=== PATIENT | female | born 1960 | race Caucasian/White ===

== ENCOUNTER 2022-07-25 17:54 | Outpatient (OUT) | payer OTHER, SELFPAY ==
--- NOTE | 2022-07-25 17:56 | MM_ITS ---
Patient: KALINA CEDEÑO Exam Date: 07/25/2022 : 1960 Gender:F Ordering : DR ARNOLDO GUNDERSON . Admission #: [id number] Family : Order #: [id number] CLICK HERE TO VIEW EXAM RADIOLOGY REPORT PROCEDURE: MM TOMOSYNTHESIS SCREENING BI COMPARISON: MG MAMM SCREEN MAYNOR W CAD, 05/07/2018. INDICATIONS: Screening mammogram Calculator Name NCI Breast Cancer Risk Assessment Tool 5 Year Breast Cancer Risk 1.20% Lifetime Breast Cancer Risk 4.70% Personal Breast Cancer No Personal Ovarian Cancer No Treatments None Family Cancers None LOCATION: [facility] BREAST COMPOSITION: Almost entirely fatty. FINDINGS: DIAGNOSTIC CATEGORY 1--NEGATIVE. RIGHT BREAST: No significant suspicious finding. No significant change has occurred. LEFT BREAST: No significant suspicious finding. No significant change has occurred. RECOMMENDATIONS: ROUTINE MAMMOGRAM AND CLINICAL EVALUATION IN 12 MONTHS. PLEASE NOTE: A NORMAL MAMMOGRAM DOES NOT EXCLUDE THE POSSIBILITY OF BREAST CANCER. A CLINICALLY SUSPICIOUS PALPABLE LUMP SHOULD BE BIOPSIED. Dictated by: Osman Damon M.D. on 07/26/2022 at 11:13 Approved by: Osman Damon M.D. on 07/26/2022 at 11:16
== END 2022-07-25 17:55 ==
LOC: MAMMO 17:54
PROVIDERS: PCP Family Medicine; Visit Provider Family Medicine
DX: Z12.31 Encounter for screening mammogram for malignant neoplasm of breast (principal)
CPT/HCPCS: 77063; 77067

== ENCOUNTER 2023-10-03 16:44 | Outpatient (OUT) | payer OTHER, SELFPAY ==
--- NOTE | 2023-10-03 16:52 | XR_ITS ---
The [address] [address] Patient Name: KALINA CEDEÑO MRN: [id number] date: 1960 Sex: F Assigned Patient Location: [facility] Current Patient Location: Accession/Order Number: [id number] Exam Date: 10/03/2023 16:55 Report Date: 10/05/2023 15:12 At the request of: ARNOLDO GUNDERSON Procedure: XR foot RT 2V EXAM: XR foot RT 2V HISTORY: Right foot pain M79.671 COMPARISON: None. TECHNIQUE: 3 views of the right foot. FINDINGS: Bones: There is a transverse, extra-articular nondisplaced fracture of fifth proximal phalangeal base/ shaft. No aggressive appearing bony lesion. Joints: Normal alignment. There is mild hallux valgus. There is a small heel spur. Soft tissues: Unremarkable. XR/XR foot RT 2V IMPRESSION: a transverse, extra-articular nondisplaced fracture of fifth proximal phalangeal base/ shaft. Electronically authenticated by: KARIN NELSON Date: 10/05/2023 15:12
== END 2023-10-03 16:45 | disposition home or self-care (01) ==
LOC: RAD 16:46
PROVIDERS: PCP Family Medicine; Visit Provider Family Medicine
DX: M79.671 Pain in right foot (principal); S92.514A Nondisplaced fracture of proximal phalanx of right lesser toe(s), initial encounter for closed fracture
CPT/HCPCS: 73620

== ENCOUNTER 2024-11-07 08:37 | Outpatient (OUT) | payer OTHER, SELFPAY ==
--- OUTSIDE RECORDS SUMMARY | 2024-11-07 08:40 | XMS_ITS | CCD ---
Author Organization [facility] Care Team Providers Care Disbursing Officer Name Role Phone NEPTALI ., DR MCLAUGHLIN Primary Care Unavailable HOY ., DR MCLAUGHLIN Admitting Unavailable HOY ., DR MCLAUGHLIN Attending Unavailable HOY ., DR MCLAUGHLIN Consulting Unavailable HOY ., DR MCLAUGHLIN Admitting Unavailable HOY ., DR MCLAUGHLIN Attending Unavailable HOY ., DR MCLAUGHLIN Consulting Unavailable HOY ., DR MCLAUGHLIN Primary Care Unavailable Problems Active Problems Problem Classification Problem Date Documented Da te Episodic/Chronic Unclassified (2 sources) CONTACT W/AND (SUSP) EXPOS COVID-19; Translations: [CONTACT W/AND (SUSP) EXPOS COVID-19] Onset: 06-22-2022 Viral infection (1 source) COVID-19; Translations: [COVID-19] Onset: 06-22-2022 Past or Other Problems Problem Classification Problem Date Documented Da te Episodic/Chronic Unclassified (1 source) CONTACT W/AND (SUSP) EXPOS COVID-19; Translations: [CONTACT W/AND (SUSP) EXPOS COVID-19] Onset: 06-19-2022 Results Test Name Value Interpretation Reference Range Facil ity INSULINon 07-18-2022 Insulin 16.2 uIU/mL Normal 2.6-24.9 [facility] Comment on above: Performed By: #### I NSULIN #### [facility] [address] [address] [address] Suri Pack CBC AUTO DIFFon 07-15-2022 BASO # 0.0 103/ul Normal 0.0-0.1 [facility] Comment on above: Performed By: #### C BC #### [facility] [address] [address] [address] Suri Pack Basophils/100 WBC (Bld) 0.6 % Normal 0.2-2.0 [facility] Comment on above: Performed By: #### C BC #### [facility] [address] [place] [address] Dr. Suri Pack EO # 0.2 103/ul Normal 0.0-0.7 [facility] Comment on above: Performed By: #### C BC #### [facility] [address] [place] [address] Dr. Suri Pack Eosinophils/100 WBC (Bld) 3.5 % Normal 0.9-7.0 [facility] Comment on above: Performed By: #### C BC #### [facility] [address] [place] [address] Dr. Suri Pack Erythrocyte distribution width (RBC) [Ratio] 17.2 % Critically high 11.0-15.0 [facility] Comment on above: Performed By: #### C BC #### [facility] [address] [place] [address] Dr. Suri Pack Hematocrit (Bld) [Volume fraction] 37.0 % Normal 36.0-48.0 [facility] Comment on above: Performed By: #### C BC #### [facility] [address] [place] [address] Dr. Suri Pack Hemoglobin (Bld) [Mass/Vol] 11.2 g/dL Critically low 12.0-16.0 [facility] Comment on above: Performed By: #### C BC #### [facility] [address] [place] [address] Dr. Suri Pack IG # 0.02 10e3/ul Normal 0.00-0.03 [facility] Comment on above: Performed By: #### C BC #### [facility] [address] [place] [address] Dr. Suri Pack IG % 0.4 % Normal 0.0-0.5 [facility] Comment on above: Performed By: #### C BC #### [facility] [address] [place] [address] Dr. Suri Pack LYMPH # 1.5 103/ul Normal 1.2-3.8 [facility] Comment on above: Performed By: #### C BC #### [facility] [address] [place] [address] Dr. Suri Pack Lymphocytes/100 WBC (Bld) 31.4 % Normal 20.5-60.0 [facility] Comment on above: Performed By: #### C BC #### [facility] [address] [address] [address] Suri Pack MANUAL DIFF REQ NO Normal [facility] Comment on above: Performed By: #### C BC #### [facility] [address] [place] [address] Dr. Srui Pack MCH (RBC) [Entitic mass] 25.7 pg Critically low 26.7-34.0 [facility] Comment on above: Performed By: #### C BC #### [facility] [address] [place] [address] Dr. Suri Pack MCHC (RBC) [Mass/Vol] 30.3 g/dL Normal 29.9-35.2 [facility] Comment on above: Performed By: #### C BC #### [facility] [address] [place] [address] Dr. Suri Pack MCV (RBC) [Entitic vol] 85.1 fL Normal 81.0-99.0 [facility] Comment on above: Performed By: #### C BC #### [facility] [address] [place] [address] Dr. Suri Pack MONO # 0.4 103/ul Normal 0.3-0.8 [facility] Comment on above: Performed By: #### C BC #### [facility] [address] [place] [address] Dr. Suri Pack Monocytes/100 WBC (Bld) 9.3 % Normal 1.7-12.0 [facility] Comment on above: Performed By: #### C BC #### [facility] [address] [place] [address] Dr. Suri Pack NEUT # 2.5 103/ul Normal 1.4-6.5 [facility] Comment on above: Performed By: #### C BC #### [facility] [address] [place] [address] Dr. Suri Pack Neutrophils/100 WBC (Bld) 54.8 % Normal 43.0-75.0 [facility] Comment on above: Performed By: #### C BC #### [facility] [address] [place] [address] Dr. Suri Pack Platelet mean volume (Bld) [Entitic vol] 10.5 fL Normal 9.5-13.5 [facility] Comment on above: Performed By: #### C BC #### [facility] [address] [place] [address] Dr. Suri Pack PLT 243 103/ul Normal 150-450 [facility] Comment on above: Performed By: #### C BC #### [facility] [address] [place] [address] Dr. Suri Pack RBC 4.35 106/ul Normal 4.20-5.40 [facility] Comment on above: Performed By: #### C BC #### [facility] [address] [place] [address] Dr. Suri Pack WBC 4.6 103/ul Normal 4.0-11.0 [facility] Comment on above: Performed By: #### C BC #### [facility] [address] [place] [address] Dr. Suri Pack FREE THYROXINE INDEX T7on FTI 2.40 Normal 1.30-4.50 [facility] Comment on above: Performed By: #### C MP, T7, LIPID, TSH #### [facility] [address] [place] [address] Dr. Suri Pack T3U 32.0 % Normal 30.0-39.0 [facility] Comment on above: Performed By: #### C MP, T7, LIPID, TSH #### [facility] [address] [place] [address] Dr. Suri Pack T4 [Mass/Vol] 7.50 ug/dL Normal 4.80-13.90 [facility] Comment on above: Performed By: #### C MP, T7, LIPID, TSH #### [facility] [address] [address] [address] Suri Pack GLYCOHEMOGLOBIN A1Con 2022 ADA RECOMMENDATION SEE BELOW Normal [facility] Comment on above: Result Comment: ADA RECOMMENDED LIMIT 4.0 - 6.0 ADA THERAPEUTIC TARGET < 7.0 ACTION SUGGESTED > 7.0 Performed By: #### A 1C #### [facility] [address] [place] [address] Dr. Suri Pack Glucose [Mass/Vol] 103 mg/dL Normal [facility] Comment on above: Performed By: #### A 1C #### [facility] [address] [place] [address] Dr. Suri Pack HbA1c (Bld) [Mass fraction] 5.2 % Normal 4.5-6.2 [facility] Comment on above: Performed By: #### A 1C #### [facility] [address] [place] [address] Dr. Suri Pack IRONon 07-15-2022 Iron [Mass/Vol] 39.0 ug/dL Critically low 50.0-170.0 [facility] Comment on above: Performed By: #### I HERNAN TREVINO #### [facility] [address] [place] [address] Dr. Suri Pack LIPID PROFILEon 07-15-2022 CHOL-HDL RATIO NORM SEE BELOW Normal [facility] Comment on above: Result Comment: 3.3 - 4.4 LOW RISK 4.4 - 7.1 AVERAGE RISK 7.1 - 11.0 MODERATE RISK >11.0 HIGH RISK Performed By: #### C MP, T7, LIPID, TSH #### [facility] [address] [place] [address] Dr. Suri Pack Cholesterol [Mass/Vol] 185 mg/dL Normal <=200 [facility] Comment on above: Performed By: #### C MP, T7, LIPID, TSH #### [facility] [address] [place] [address] Dr. Suri Pack Cholesterol in HDL [Mass/Vol] 85 mg/dL Critically high 40-60 [facility] Comment on above: Performed By: #### C MP, T7, LIPID, TSH #### [facility] [address] [address] [address] Suri Pack Cholesterol in LDL [Mass/Vol] 88.4 mg/dL Normal [facility] Comment on above: Performed By: #### C MP, T7, LIPID, TSH #### [facility] [address] [address] [address] Suri Pcak Cholesterol.total/Cho lesterol in HDL [Mass ratio] 2.2 {ratio} Normal [facility] Comment on above: Performed By: #### C MP, T7, LIPID, TSH #### [facility] [address] [address] [address] Suri Pack HDL NORMAL > or = 60 mg/dl - LOW CARDIOVASCULAR RISK <40 mg/dl - HIGH CARDIOVASCULAR RISK Normal [facility] Comment on above: Performed By: #### C MP, T7, LIPID, TSH #### [facility] [address] [address] [address] Suri Pack LDL CALC NORMAL SEE BELOW Normal [facility] Comment on above: Result Comment: <100 mg/dl OPTIMAL 100 - 129 mg/dl NEAR OR ABOVE OPTIMAL 130 - 159 mg/dl BORDERLINE HIGH 160 - 189 mg/dl HIGH >190 mg/dl VERY HIGH Performed By: #### C MP, T7, LIPID, TSH #### [facility] [address] [address] [address] Suri Pack Triglyceride [Mass/Vol] 58 mg/dL Normal <=150 [facility] Comment on above: Performed By: #### C MP, T7, LIPID, TSH #### [facility] [address] [address] [address] Suri Pack VLDL CALC 11.6 mg/dL Normal [facility] Comment on above: Performed By: #### C MP, T7, LIPID, TSH #### [facility] [address] [place] [address] Dr. Suri Pack PROF 14(COMP METB)on 023 Albumin [Mass/Vol] 3.4 g/dL Normal 3.4-5.0 [facility] Comment on above: Performed By: #### C MP, T7, LIPID, TSH #### [facility] [address] [address] [address] Suri Pack Albumin/Globulin [Mass ratio] 0.9 {ratio} Normal [facility] Comment on above: Performed By: #### C MP, T7, LIPID, TSH #### [facility] [address] [address] [address] Suri Pack ALP [Catalytic activity/Vol] 98 U/L Normal 46-116 [facility] Comment on above: Performed By: #### C MP, T7, LIPID, TSH #### [facility] [address] [address] [address] Suri Pack ALT [Catalytic activity/Vol] 20 U/L Normal 14-59 [facility] Comment on above: Performed By: #### C MP, T7, LIPID, TSH #### [facility] [address] [place] [address] Dr. Suri Pack Anion gap [Moles/Vol] 16.5 mmol/L Normal [facility] Comment on above: Performed By: #### C MP, T7, LIPID, TSH #### [facility] [address] [place] [address] Dr. Suri Pack AST [Catalytic activity/Vol] 16 U/L Normal 15-37 [facility] Comment on above: Performed By: #### C MP, T7, LIPID, TSH #### [facility] [address] [address] [address] Suri Pack Bilirubin [Mass/Vol] 0.5 mg/dL Normal 0.2-1.0 [facility] Comment on above: Performed By: #### C MP, T7, LIPID, TSH #### [facility] [address] [place] [address] Dr. Suri Pack Calcium [Mass/Vol] 9.0 mg/dL Normal 8.5-10.1 [facility] Comment on above: Performed By: #### C MP, T7, LIPID, TSH #### [facility] [address] [place] [address] Dr. Suri Pack Chloride [Moles/Vol] 104 mmol/L Normal 98-107 [facility] Comment on above: Performed By: #### C MP, T7, LIPID, TSH #### [facility] [address] [address] [address] Suri Pack CO2 [Moles/Vol] 25.6 mmol/L Normal 21.0-32.0 [facility] Comment on above: Performed By: #### C MP, T7, LIPID, TSH #### [facility] [address] [address] [address] Suri Pack Creatinine [Mass/Vol] 0.78 mg/dL Normal 0.55-1.02 [facility] Comment on above: Performed By: #### C MP, T7, LIPID, TSH #### [facility] [address] [place] [address] Dr. Suri Pack EGFR-AF BOLIVIAN >60 Normal >=60 [facility] Comment on above: Performed By: #### C MP, T7, LIPID, TSH #### [facility] [address] [place] [address] Dr. Suri Pack EGFR-NON AF BOLIVIAN >60 Normal >=60 [facility] Comment on above: Performed By: #### C MP, T7, LIPID, TSH #### [facility] [address] [place] [address] Dr. Suri Pack Globulin (S) [Mass/Vol] 3.9 g/dL Normal [facility] Comment on above: Performed By: #### C MP, T7, LIPID, TSH #### [facility] [address] [address] [address] Suri Pack Glucose [Mass/Vol] 87 mg/dL Normal 74-106 [facility] Comment on above: Performed By: #### C MP, T7, LIPID, TSH #### [facility] [address] [address] [address] Suri Pack Potassium [Moles/Vol] 4.1 mmol/L Normal 3.5-5.1 [facility] Comment on above: Performed By: #### C MP, T7, LIPID, TSH #### [facility] [address] [place] [address] Dr. Suri Pack Protein [Mass/Vol] 7.3 g/dL Normal 6.4-8.2 [facility] Comment on above: Performed By: #### C MP, T7, LIPID, TSH #### [facility] [address] [place] [address] Dr. Suri Pack Sodium [Moles/Vol] 142 mmol/L Normal 136-145 [facility] Comment on above: Performed By: #### C MP, T7, LIPID, TSH #### [facility] [address] [place] [address] Dr. Suri Pack Urea nitrogen [Mass/Vol] 6.0 mg/dL Critically low 7.0-18.0 [facility] Comment on above: Performed By: #### C MP, T7, LIPID, TSH #### [facility] [address] [place] [address] Dr. Suri Pack Urea nitrogen/Creatinine [Mass ratio] 7.7 mg/mg Normal [facility] Comment on above: Performed By: #### C MP, T7, LIPID, TSH #### [facility] [address] [place] [address] Dr. Suri Pack TSHon 07-15-2022 TSH 3.436 uIU/mL Normal 0.358-3.740 [facility] Comment on above: Performed By: #### C MP, T7, LIPID, TSH #### [facility] [address] [place] [address] Dr. Suri Pack VITAMIN D 25 OHon 07-15-2022 VIT D 25-OH 17.1 ng/mL Normal [facility] Comment on above: Performed By: #### I URIEL VITAD #### [facility] [address] [place] [address] Dr. Suri Pack VIT D RANGES SEE BELOW Normal [facility] Comment on above: Result Comment: <20 ng/mL Vit D deficient 20 - <30 ng/mL Vit D insufficient 30 - 100 ng/mL Vit D sufficient >100 ng/mL Potential Toxicity Performed By: #### I URIEL, VITAD #### [facility] [address] [address] [address] Suri Pack SYMPTOMATIC COVID-19 ANTIGEN on 06-19-2022 EUA Statement SEE BELOW Normal [facility] Comment on above: Result Comment: This test has not been FDA cleared or approved, but has been authorized by the FDA under an Emergency Use Authorization (EUA) for use by authorized laboratories certified under CLIA that meet the requirements to perform moderate or high complexity testing. This test has been authorized only for the detection of proteins from SARS-CoV-2, not for any other viruses or pathogens. The emergency use of this test is authorized for the duration of the declaration that circumstances exist justifying the authorization of emergency use of in vitro diagnostic tests for detection and/or diagnosis of Covid-19 under section 564(b)(1) of the Act, 21 U.S.C. 360bbb-3(b)(1), unless the declaration is terminated or authorization is revoked sooner. Performed By: #### C VDAGS #### [facility] [address] [place] [address] Dr. Suri Pack SARS-CoV-2 (COVID-19) RNA LEONEL+probe Ql (Unsp spec) Positive Abnormal NEGATIVE [facility] Comment on above: Performed By: #### C VDAGS #### [facility] [address] [place] [address] Dr. Suri Pack Encounters Encounter Date Encounter Type Care Provider Facility Start: 07-17-2022 Encounter for genera l adult medical examination without abnormal findings DR ARNOLDO GUNDERSON . [facility] Start: 07-15-2022 End: 07-16-[address] ARNOLDO GUNDERSON . Facility:[facility] Start: 07-15-2022 End: 07-16-2022 Encounter for general adult medical examination without abnormal findings DR ARNOLDO GUNDERSON . Facility:[facility] Start: 06-19-2022 End: 06-19-[address] ARNOLDO GUNDERSON . Facility: Payers Date Payer Category Payer Unknown [id number] 1960 Unknown [id number] 1960 Unknown [id number] Summary Purpose Family History No Family History Records Found Advance Directives No Advanced Directives Records Found Additional Source Comments INFORMATION SOURCE (unrecogn ized section and content) DATE CREATED AUTHOR 07/28/2022 [facility] FOR RECORDS PERTAINING TO PATIENTS WHO ARE OR HAVE BEEN ENROLLED IN A CHEMICAL DEPENDENCY/SUBSTANCEABUSE PROGRAM, SOME INFORMATION MAY BE OMITTED. This clinical summary was aggregated from multiple sources. Caution should be exercised in using it in the provision of clinical care. This summary normalizes information from multiple sources, and as a consequence, information in this document may materially change the coding, format and clinical context of patient data. In addition, data may be omitted in some cases. CLINICAL DECISIONS SHOULD BE BASED ON THE PRIMARY CLINICAL RECORDS. [facility]. provides no warranty or guarantee of the accuracy or completeness of information in this document.
--- NOTE | 2024-11-07 08:59 | MM_ITS ---
Patient Name: KALINA CEDEÑO MR#: [id number] : 1960 Exam Date: 11/07/2024 Ordering Doctor: DR ARNOLDO GUNDERSON . RADIOLOGY REPORT PROCEDURE: MM TOMOSYNTHESIS SCREENING BI COMPARISON: MM TOMOSYNTHESIS SCREENING BI, 07/25/2022. MG MAMM SCREEN MAYNOR W CAD, 05/07/2018. MG MAMM RT DIAG FU, 05/04/2017. MG MAMM SCREEN MAYNOR W CAD, 05/01/2017. INDICATIONS: Screening Calculator Name NCI Breast Cancer Risk Assessment Tool 5 Year Breast Cancer Risk 1.20% Lifetime Breast Cancer Risk 4.40% Personal Breast Cancer No Personal Ovarian Cancer No Treatments None Family Cancers Father with lung cancer at age ~65. LOCATION: [facility] BREAST COMPOSITION: The breasts are almost entirely fatty. FINDINGS: RIGHT BREAST: No significant suspicious finding. LEFT BREAST: No significant suspicious finding. DIAGNOSTIC CATEGORY 1--NEGATIVE. RECOMMENDATIONS: ROUTINE MAMMOGRAM AND CLINICAL EVALUATION IN 12 MONTHS. Dictated by: Sanjay Palmer DO on 11/07/2024 at 12:50 Approved by: Sanjay Palmer DO on 11/07/2024 at 12:51
== END 2024-11-07 08:38 | disposition home or self-care (01) ==
LOC: MAMMO 08:37
PROVIDERS: PCP Family Medicine; Visit Provider Family Medicine
DX: Z12.31 Encounter for screening mammogram for malignant neoplasm of breast (principal); Z80.1 Family history of malignant neoplasm of trachea, bronchus and lung
CPT/HCPCS: 77063; 77067

== ENCOUNTER 2024-12-08 13:15 | Outpatient (REF) | payer OTHER, SELFPAY ==
--- OUTSIDE RECORDS SUMMARY | 2024-11-27 08:30 | XMS_ITS | Encounter Summary ---
Author Organization [facility] Address [address], [address] [place] [address] Care Team Providers Care Gem Carver Name Role Phone Sukumar Bolton MD Primary Care Provider + Reason for Visit * Reason Comments Post-Op Check ORIF right proximal humerus Encounter Details Date Type Department Care Team (Late st Contact Info) Description 11/27/2024 8:30 AM EDT Office Visit [facility] [address] [place] [id number] Jan Hanley DO [address] [place] [address] Humeral head fracture, right, closed, initial encounter (Primary Dx) Social History Tobacco Use Types Packs/Day Years Used Date Smoking Tobacco: Former Cigarettes Smokeless Tobacco: Never Alcohol Use Standard Drinks/Week Comments Never 0 (1 standard drink = 0.6 oz pur e alcohol) Housing Stability Vital Sign Answer Graham e Recorded In the last 12 months, was t here a time when you were not able to pay the mortgage or rent on time? No 11/12/2024 In the past 12 months, how m any times have you moved where you were living? 0 11/12/2024 At any time in the past 12 m onths, were you homeless or living in a intermediate (including now)? No 11/12/2024 Hunger Vital Sign Answer Date Recorded Within the past 12 months, y ou worried that your food would run out before you got the money to buy more. Never true 11/13/19 25 Within the past 12 months, t he food you bought just didn't last and you didn't have money to get more. Never true 11/12/2024 PRAPARE - Transportation Answer Date Re corded In the past 12 months, has l ack of transportation kept you from medical appointments or from getting medications? No 10/21 In the past 12 months, has l ack of transportation kept you from meetings, work, or from getting things needed for daily living? No 11/12/2024 [facility] Utilities Answer Date Recorded In the past 12 months has th e electric, gas, oil, or water company threatened to shut off services in your home? No 11/12/2024 Interpersonal Safety Domain Source: IP Abuse Scr eening Answer Date Recorded Physical abuse Denies 11/12/2024 Verbal abuse Denies 11/12/2024 Emotional abuse Denies 11/12/2024 Financial abuse Denies 11/12/2024 Sexual abuse Denies 11/12/2024 Comments No Sex and Gender Information Value Date Recorded Sex Assigned at Not on file Legal Sex Female 6:13 PM EDT Gender Identity Not on file Sexual Orientation Not on file documented as of this encounter Last Filed Vital Signs Vital Sign Reading Time Taken Comments Blood Pressure - - Pulse - - Temperature - - Respiratory Rate - - Oxygen Saturation - - Inhaled Oxygen Concentration - - Weight - - Height 170.2 cm (5' 7.01 ) 11/27/2024 8:31 AM ED T Body Mass Index - - documented in this encounter Patient Instructions * Patient Instructions* Rose Leary MA - 11/27/2024 9:03 AM EDT You may utilize the sling for comfort, we encourage you to come out of the sling several times daily to work on elbow motion. documented in this encounter Progress Notes * Jan Hanley DO - 11/27/2024 8:30 AM EDT Images from the original note were not included. [facility] [address] [facility] [address] [facility] [id number] Dept Dept Orthopa[facility] Trauma Clinic Follow Up Subjective: Date of Surgery: 11/12/24 History of Present Illness The patient is a 64-year-old female presenting for a 2-week follow-up post-ORIF of a right proximalhumerus fracture. And nonoperative management of left medial tibial spine fracture. She is currently in a SNF. She states compliance with her nonweightbearing restrictions for left lower extremity and has been largely in the sling full-time for the right upper extremity. She reports no shoulder pain but experienced soreness during her hospital stay. She can hany anduse her elbow without difficulty but feels a slight tugging when lifting objects slowly. She cannotmove her arm fully but uses it for personal hygiene tasks. She is undergoing therapy at her facility but has not started specific shoulder therapy. Objective : There were no vitals filed for this visit.Body mass index is 37.89 kg/m??. General: No acute distress, resting comfortably in the clinic Neuro: alert. oriented Eyes: Extra-ocular muscles intact Pulm: Respirations unlabored and regular. Skin: warm, well perfused Psych: Patient has good fund of knowledge and displays understanding of exam, diagnosis, and plan. MSK: RUE: Surgical incision to anterolateral aspect of shoulder healing well with retained Dermabond glue. No signs of infection or other related complications. Minor residual elbow stiffness but otherwise doing well. Active shoulder range of motion approximately 45 degrees of abduction but tolerating 90 degrees of passive abduction. compartments soft. 2+ Rad/Uln pulse with BCR. AIN/PIN/Rad/Uln/Med/Ax motor intact. Rad/Uln/Med/Ax nerves SILT. LLE: Anterior ecchymosis about the knee in various stages of healing. Mild residual edema but much improved from time of hospital stay. Tolerating full knee range of motion with no ligamentous instability. compartments soft. 2+ DP/PT pulses with BCR. TA/EHL/FHL/GS motor intact. Saph/Radha/DP/SP nerves SILT Radiology: No new radiographs today. Reviewed pre and post op studies with patient to explain injury and surgery. Assessment & Plan 1. 2 weeks status post ORIF of right proximal humerus fracture: Goal: regain range of motion, particularly overhead, and enable daily activities independently. Gradually increase weight-bearing on the arm as tolerated. Provide therapist with instructions for active assist ROM exercises. Passive ROM up to 90 degrees permitted, stretching beyond this limit after 2 weeks if comfortable. Continue using the arm for daily activities. 2. Left knee medial tibia fracture: Significant improvement after 2 weeks of rest. Avoid excessive weight-bearing initially. Provide hinged knee sleeve for support. Gradually increase weight- bearing as tolerated. Use walker or crutchesfor stability. Therapist to work on using a hemiwalker. Continue ROM exercises and gradually strengthen the knee. Provided SNF letter Follow-up: Scheduled for 4 weeks with XR of R shoulder and L knee. No orders of the defined types were placed in this encounter. No orders of the defined types were placed in this encounter. The patient (or guardian, if applicable) and other individuals in attendance with the patient were advised that Artificial Intelligence will be utilized during this visit to record, process the conversation to generate a clinical note, and support improvement of the AI technology. The patient (or guardian, if applicable) and other individuals in attendance at the appointment consented to the use of AI, including the recording. documented in this encounter Plan of Treatment Upcoming Encounters Date Type Department Care Team (Late st Contact Info) Description 12/25/2024 9:45 AM EST Office Visit [facility] [address] [place] [address] Jan Hanley DO [address] [place] [address] R shoulder post op documented as of this encounter Visit Diagnoses Diagnosis Humeral head fracture, right, closed, initial encounter- Primary documented in this encounter Care Teams Gem Carver Relationship Specialty Start Date End Date Sukumar Bolton MD [address] [place] [address] PCP - General Family Medicine 11/12/24 documented as of this encounter
--- OUTSIDE RECORDS SUMMARY | 2024-12-08 13:20 | XMS_ITS | Encounter Summary ---
Author Organization [facility] Address [address] [facility], [address] [place] [address] Care Team Providers Care Keno Terminal Operator Name Role Phone Sukumar Bolton MD Primary Care Provider + Encounter Details Date Type Department Care Team (Late st Contact Info) Description 12/03/2024 Telephone [facility] [address] [place] [address] Jan Hanley DO [address] [place], [place] [id number] Social History Tobacco Use Types Packs/Day Years [...] any time in the past 12 m [facility], were you homeless or living in a fpc (including now)? No 11/12/2024 Hunger Vital Sign [...] things needed for daily living? No 11/12/2024 [facility] Utilities Answer Date Recorded In the [...] on file documented as of this encounter Plan of Treatment Upcoming Encounters Date Type Department Care Team (Late st Contact Info) Description 12/25/2024 9:45 AM EST Office Visit [facility] [address] [place] [address] Jan Hanley DO [address] [place] [address] R shoulder post op documented as of this encounter Visit Diagnoses Not on filedocumented in this encounter Care Teams Keno Terminal Operator Relationship Specialty Start Date End Date Sukumar Bolton MD [address] [facility] [place] [address] PCP - General Family Medicine 11/12/24 documented as of this encounter
--- OUTSIDE RECORDS SUMMARY | 2024-12-08 13:21 | XMS_ITS | Encounter Summary ---
Author Organization [facility] Address [address] [place] [id number] Care Team Providers Care Truck Leasing Manager Name Role Phone Sukumar Bolton MD Primary Care Provider +-[phone] Es Ashley MD Unavailable Source Comments In the event this information is protected by the Federal Confidentiality of Alcohol and Drug AbusePatient Records regulations: The Federal rules restrict any use of the information to criminally investigate or prosecute any alcohol or drug abuse patient.[facility] Encounter Details Date Type Department Care Team (Late st Contact Info) Description 04/23/2023 [place] [address] Provider, [facility] Medicare Coverage of Physical Exams Social History Tobacco Use Types Packs/Day Years Used Date Smoking Tobacco: Former Cigarettes 0.8 36 Smokeless Tobacco: Never Comments:Quit smoking 2014 Alcohol Use Standard Drinks/Week Comments No 0 (1 standard drink = 0.6 oz pur e alcohol) Comments No Sex and Gender Information Value Date Recorded Sex Assigned at Not on file Legal Sex Female 10:12 AM EST Gender Identity Not on file Sexual Orientation Not on file documented as of this encounter Functional Status * Are you deaf or do you have serious difficulty hearing? Answer Date of Assessment Author No 03/17/2015 3:49 PM Vasile Montoya RN * Are you blind or do you have serious difficulty seeing, even when wearing glasses? Answer Date of Assessment Author No 03/17/2015 3:49 PM Vasile Montoya RN * Do you have serious difficulty walking or climbing stairs? Answer Date of Assessment Author No 03/17/2015 3:49 PM Vasile Montoya RN * Do you have difficulty dressing or bathing? Answer Date of Assessment Author No 03/17/2015 3:49 PM Vasile Montoya RN * Because of a physical, mental, or emotional condition, do you have difficulty doing errands alone such as visiting a doctor's office or shopping? Answer Date of Assessment Author No 03/17/2015 3:49 PM Vasile Montoya RN documented as of this encounter Mental Status * Because of a physical, mental, or emotional condition, do you have serious difficulty concentrating, remembering, or making decisions? Answer Entry Date Author No 03/17/2015 3:49 PM Vasile Montoya RN documented in this encounter Plan of Treatment Not on file documented as of this encounter Visit Diagnoses Not on filedocumented in this encounter Care Teams Truck Leasing Manager Relationship Specialty Start Date End Date Suukmar Bolton MD PCP - General Family Medicine 01/10/11 Es Ashley MD [address] [place] [address] Primary Staff Physician Cardiology 05/07/18 documented as of this encounter
--- OUTSIDE RECORDS SUMMARY | 2024-12-08 13:21 | XMS_ITS | Clinical Summary ---
Author Organization [facility] Address [address] [place], [place] [id number] Care Team Providers Care Paralegal Assistant Name Role Phone Sukumar Bolton MD Primary Care Provider [phone] Es Ashley MD Unavailable Allergies Active Allergy Reactions Criticality Noted Date Comments Penicillins Unknown 12/04/2011 Soy Anaphylaxis 08/13/2012 Sulfa (Sulfonamide Antibiotics) Unknown 11/19 Medications VENTOLIN HFA 90 mcg/actuation inhaler Inhale 1 Puff as instructed as needed. 2 Active OMEPRAZOLE 20 mg capsule Take 20 mg by mouth once daily. 3 Active Iron Polysacch [id number] (FERREX 150 FORTE) 150-25-1 mg-mcg-mg cap Take 1 capsule by mouth twice daily. 180 capsule 6 5 Active acetaminophen (TYLENOL) 650 mg/20.3 mL soln Take 10.15 mL by mouth every 4 hours as needed. 0 6 Active promethazine (PHENERGAN) 25 mg tablet Take 1 tablet by mouth every 4 hours as needed for Nausea/Vomiting . 25 tablet 0 6 Active Active Problems Problem Noted Date Diagnosed Date Anemia 12/05/2011 Iron deficiency anemia 12/05/2011 Hiatal hernia Endometriosis Ovarian cyst Family History Medical History Relation Comments Coronary Artery Disease Father Relation Status Comments Father Social History Tobacco Use Types Packs/Day Years Used Date Smoking Tobacco: Former Cigarettes 0.8 36 Smokeless Tobacco: Never Comments:Quit smoking Octobe r 2, 2014 Alcohol Use Standard Drinks/Week Comments No 0 (1 standard drink = 0.6 oz pur e alcohol) Comments No Sex and Gender Information Value Date Recorded Sex Assigned at Not on file Legal Sex Female 10:12 AM EST Gender Identity Not on file Sexual Orientation Not on file Last Filed Vital Signs Vital Sign Reading Time Taken Comments Blood Pressure 123/72 04/05/2015 12:04 PM EST Pulse 70 04/05/2015 12:04 PM EST Temperature 36.8 C (98.3 F) 04/05/2015 12:04 PM EST Respiratory Rate 16 03/17/2015 1:08 PM EST Oxygen Saturation 95% 03/17/2015 1:08 PM EST Inhaled Oxygen Concentration - - Weight 103.9 kg (229 lb) 04/05/2015 12:04 PM EST Height 175.3 cm (5' 9 ) 04/05/2015 12:04 PM EST Body Mass Index 33.82 04/05/2015 12:04 PM EST Plan of Treatment Health Maintenance Due Date Last Done Comments Anxiety Screening 1976 Depression Screening 1976 Hepatitis C Screening 1976 DTaP,Tdap,Td Vaccine (1 - Tdap) [address] Colonography 04/23/2003 Cologuard (FIT-DNA) 04/23/2003 Colonoscopy 04/23/2003 Colorectal Cancer Screening 04/23/2003 Fecal Occult Blood 04/23/2003 Lipid Screening 04/23/2003 Sigmoidoscopy 04/23/2003 Pneumococcal Vaccine: 50+ (1 of 1 - PCV) 2008 Shingrix Vaccine (1 of 2) 2008 Diabetes Screening 03/17/2018 03/17/2015, 0 03/16/2015, 03/04/2015, Additional history exists Bone Density Screening 04/23/2023 Advance Directive Discussion 02/20/2024 Covid-19 Vaccine ( - 2024-2 6 season) 2024 Influenza Vaccine (#1) 2024 RSV Vaccine (1 - 1-dose 75+ series) 2033 Procedures Procedure Name Priority Date/Time Associated Diagnosis Comments BASIC METABOLIC PANEL Routine 03/17/2015 6:22 AM EST from Last 3 Months or Most Recently Relevant to Health Maintenance Results * (ABNORMAL) BASIC METABOLIC PNL (03/17/2015 6:22 AM EST) Glucose 101(H) 65 - 100 mg/dL 03/17/2015 8:16 AM EST [facility] BUN 8 8 - 25 mg/dL 03/17/2015 8:16 AM EST [facility] Creatinine 0.71 0.70 - 1.40 mg/dL 03/17/2015 8:16 AM EST [facility] Sodium 138 132 - 148 mmol/L 03/17/2015 8:16 AM EST [facility] Potassium 4.2 3.5 - 5.0 mmol/L 03/17/2015 8:16 AM EST [facility] Chloride 103 98 - 110 mmol/L 03/17/2015 8:16 AM EST [facility] CO2 26 23 - 32 mmol/L 03/17/2015 8:16 AM [facility] Anion Gap 9 0 - 15 mmol/L 03/17/2015 8:16 AM EST [facility] Calcium 8.6 8.5 - 10.5 mg/dL 03/17/2015 8:16 AM [facility] eGFR- >60 03/17/2015 8:16 AM [facility] eGFR-All Other Races >60 . 03/17/2015 8:16 AM [facility] Comment: eGFR (Estimated GFR) Units of measure: mL/min/1.73 meters squared eGFR is derived from the reexpressed MDRD Study equation using the following parameters: serum creatinine, age, gender and race. The creatinine assay has been calibrated to be traceable to IDMS. An eGFR <60 mL/min/1.73m2 for >3 months is consistent with chronic kidney disease. Refer to KDOQI guidelines for clinical interpretation. In patients with unstable renal function, e.g. those with acute kidney injury, the eGFR may not accurately reflect actual GFR. Blood specimen (specimen) BLOOD SPECIMEN / Unknown 03/17/2015 6:22 AM EST 03/17/2015 6:23 AM EST us Martin Foley MD LABORATORY Final Re sult [facility] [address] [place] [address] from Last 3 Months or Most Recently Relevant to Health Maintenance Insurance [employer] PPO Care Teams Paralegal Assistant Relationship Specialty Start Date End Date Sukumar Bolton MD PCP - General Family Medicine 01/10/11 Es Ashley MD [address] [place] [address] Primary Staff Physician Cardiology 05/07/18
--- OUTSIDE RECORDS SUMMARY | 2024-12-08 13:22 | XMS_ITS | CCD ---
Author Organization [facility] CliniSyde Care Team Providers Care Forestry Conservation Worker Name Role Phone NEPTALI ., DR MCLAUGHLIN Primary Care Unavailable HOY ., DR MCLAUGHLIN Admitting Unavailable HOY ., DR MCLAUGHLIN Attending Unavailable HOY ., DR MCLAUGHLIN Consulting Unavailable HOY ., DR MCLAUGHLIN Admitting Unavailable HOY ., DR MCLAUGHLIN Attending Unavailable HOY ., DR MCLAUGHLIN Consulting Unavailable HOY ., DR MCLAUGHLIN Primary Care Unavailable Bunting Donnie VICK Attending Provider Donnie Hickman Attending Unavailable Donnie Hickman Admitting Unavailable ARNOLDO GUNDERSON Primary Care Unavailable VINCENT [place] Consulting Unavailable LUTHER CARTER Admitting Unavailable LUTHER CARTER Attending Unavailable BRIANDA CARTERL Peng Consulting Unavailable LUCIAN FATIMA Consulting Unavailable Problems Active Problems Problem Classification Problem Date Documented Da te Episodic/Chronic Administrative/social admission (1 source) Encounter for examination for admission to residential institution; Translations: [Encounter for examination for admission to residential institution] Onset: 11-21-2024 Episodic Fracture of upper limb (1 source) Other displaced fracture of upper end of right humerus, initial encounter for closed fracture; Translations: [Other displaced fracture of upper end of right humerus, initial encounter for closed fracture] Onset: 11-12-2024 Episodic Unclassified (2 sources) CONTACT W/AND (SUSP) EXPOS COVID-19; Translations: [CONTACT W/AND (SUSP) EXPOS COVID-19] Onset: 06-22-2022 Viral infection (1 source) COVID-19; Translations: [COVID-19] Onset: 06-22-2022 Past or Other Problems Problem Classification Problem Date Documented Da te Episodic/Chronic Unclassified (1 source) CONTACT W/AND (SUSP) EXPOS COVID-19; Translations: [CONTACT W/AND (SUSP) EXPOS COVID-19] Onset: 06-19-2022 Results Test Name Value Interpretation Reference Range Facility Basophils [#/volume] in Bloo d by Automated countOrdered By: Donnie Hickman on 11-21-2024 Basophils (Bld) [#/Vol] 0.0 10*3/uL Normal 0.0-0.2 [facility] Comment on above: Result Comment: PERF ORMED BY: [place] [address] PATHOLOGIST SHANK MAKER TONY ALVES M.D. Performed By: #### C BC #### [address] Basophils/100 leukocytes in Blood by Automated countOrdered By: Donnie Hickman on 11-21-2024 Basophils/100 WBC (Bld) 0.7 % Normal . [facility] Comment on above: Performed By: #### C BC #### [address] Complete Blood Count Auto Di ffon 11-21-2024 Mean Corpuscular HGB Conc 31.5 g/dL Low 32.0-35.0 [facility] Comment on above: Performed By: #### C BC #### [address] NRBC% 0.1 /100{WBC} Normal 0-0.5 [facility] Comment on above: Performed By: #### C BC #### [address] White Blood Count 6.0 [CFU]/mL Normal 3.8-11.[address] [facility] Comment on above: Performed By: #### C BC #### [address] Eosinophils [#/volume] in Bl ood by Automated countOrdered By: Donnie Hickman on 11-21-2024 Eosinophils (Bld) [#/Vol] 0.2 10*3/uL Normal 0.0-0.45 [facility] Comment on above: Performed By: #### C BC #### [place] [address] [place] Eosinophils/100 leukocytes i n Blood by Automated countOrdered By: Donnie Bunting on 11-21-2024 Eosinophils/100 WBC (Bld) 3.4 % Normal . [facility] Comment on above: Performed By: #### C BC #### [address] Erythrocyte distribution wid th [Ratio] by Automated countOrdered By: Donnie Bunting on 11-21-2024 Erythrocyte distribution width (RBC) [Ratio] 17.8 % High 11.9-15.3 [facility] Comment on above: Performed By: #### C BC #### [address] Erythrocytes [#/volume] in B lood by Automated countOrdered By: Donnie Bunting on 11-21-2024 RBC (Bld) [#/Vol] 3.03 10*6/uL Low 3.60-5.00 [facility] Comment on above: Performed By: #### C BC #### [address] Hematocrit [Volume Fraction] of Blood by Automated countOrdered By: Donnie Bunting on 11-21-2024 Hematocrit (Bld) [Volume fraction] 24.2 % Low 34.0-46.4 [facility] Comment on above: Performed By: #### C BC #### [address] Hemoglobin [Mass/volume] in BloodOrdered By: Donnie Bunting on 11-21-2024 Hemoglobin (Bld) [Mass/Vol] 7.6 g/dL Low 11.8-15.4 [facility] Comment on above: Performed By: #### C BC #### [address] Leukocytes [#/volume] correc nati for nucleated erythrocytes in Blood by Automated counOrdered By: Donnie Bunting on 11-21-2024 WBC corrected for nucl RBC Auto (Bld) [#/Vol] 6.0 10*3/uL 3.8-11.6 [facility] Leukocytes [#/volume] in Blo od by Automated countOrdered By: Donnie Bunting on 11-21-2024 WBC (Bld) [#/Vol] 6.0 10*3/uL Normal 3.8-11.6 [facility] Comment on above: Performed By: #### C BC #### [address] Lymphocytes [#/volume] in Bl ood by Automated countOrdered By: Donnie Bunting on 11-21-2024 Lymphocytes (Bld) [#/Vol] 1.3 10*3/uL Normal 1.00-4.8 [facility] Comment on above: Performed By: #### C BC #### [address] Lymphocytes/100 leukocytes i n Blood by Automated countOrdered By: Donnie Bunting on 11-21-2024 Lymphocytes/100 WBC (Bld) 21.5 % Normal . [facility] Comment on above: Performed By: #### C BC #### [address] MCH [Entitic mass] by Automa nati countOrdered By: Donnie Bunting on 11-21-2024 MCH (RBC) [Entitic mass] 25.2 pg Normal 24.7-34.3 [facility] Comment on above: Performed By: #### C BC #### [address] MCHC Auto (RBC) [Mass/Vol]Or dered By: Donnie Bunting on 11-21-2024 MCHC (RBC) [Mass/Vol] 31.5 g/dL Low 32.0-35.0 [facility] MCV [Entitic volume] by Auto mated countOrdered By: Donnie Bunting on 11-21-2024 MCV (RBC) [Entitic vol] 79.9 fL Low 80-100 [facility] Comment on above: Performed By: #### C BC #### [place] [address] [place] Monocytes [#/volume] in Bloo d by Automated countOrdered By: Donnie Bunting on 11-21-2024 Monocytes (Bld) [#/Vol] 0.6 10*3/uL Normal 0.0-0.8 [facility] Comment on above: Performed By: #### C BC #### [facility] [address] [place] [address] [place] Monocytes/100 leukocytes in Blood by Automated countOrdered By: Donnie Bunting on 11-21-2024 Monocytes/100 WBC (Bld) 10.7 % Normal . [facility] Comment on above: Performed By: #### C BC #### [place] [address] [place] Neutrophils [#/volume] in Bl ood by Automated countOrdered By: Donnie Bunting on 11-21-2024 Neutrophils (Bld) [#/Vol] 3.8 10*3/uL Normal 1.8-7.7 [facility] Comment on above: Performed By: #### C BC #### [place] [address] [place] Neutrophils/100 leukocytes i n Blood by Automated countOrdered By: Donnie Bunting on 11-21-2024 Neutrophils/100 WBC (Bld) 63.7 % Normal . [facility] Comment on above: Performed By: #### C BC #### [place] [address] [place] Nucleated erythrocytes [Pres ence] in Blood by Automated countOrdered By: Donnie Bunting on 11-21-2024 Nucleated RBC Auto Ql (Bld) 0.1 /100{WBC} 0-0.5 [facility] Platelet mean volume [Entiti c volume] in Blood by Automated countOrdered By: Donnie Bunting on 11-21-2024 Platelet mean volume (Bld) [Entitic vol] 9.4 fL Normal 6.3-10.7 [facility] Comment on above: Performed By: #### C BC #### [place] [address] [place] Platelets [#/volume] in Bloo d by Automated countOrdered By: Donnie Bunting on 11-21-2024 Platelets (Bld) [#/Vol] 230 10*3/uL Normal 150-450 [facility] Comment on above: Performed By: #### C BC #### [facility] [address] [place] [id number] [facility] XR KNEE LEFT (MIN 4 VIEWS)on 11-17-2024 XR KNEE LEFT (MIN 4 VIEWS) EXAMINATION: FOUR X-RAY VIEWS OF THE LEFT KNEE 11/11/2024 6:37 pm COMPARISON: None HISTORY: ORDERING SYSTEM PROVIDED HISTORY: fall onto knee, include sunrise TECHNOLOGIST PROVIDED HISTORY: fall onto knee, include sunrise FINDINGS: Linear lucency is noted in the tibial spine suspicious for a nondisplaced tibial plateau fracture. Moderate lipohemarthrosis. No other acute fracture or dislocation. Joint spaces and alignment are otherwise grossly maintained. IMPRESSION: 1. Nondisplaced tibial plateau fracture predominantly involving the tibial spine. 2. Moderate lipohemarthrosis. Interpreted by: Kellen Peoples MD Signed by: Kellen Peoples MD 11/17/24 Final result Normal [facility] Basic Metab w/rfx MGon 11-15 Anion gap [Moles/Vol] 8 mmol/L Low 9-16 [facility] Comment on above: Performed By: #### B MPX, CDP, MG, POLLO #### [facility] [address] [place] [address] Car Spotter: Fernando Matta MD Calcium [Mass/Vol] 8.4 mg/dL Low 8.6-10.4 [facility] Comment on above: Performed By: #### B MPX, CDP, MG, POLLO #### [facility] [address] [place] [address] Car Spotter: Fernando Matta MD Chloride [Moles/Vol] 106 mmol/L Normal 98-107 [facility] Comment on above: Performed By: #### B MPX, CDP, MG, POLLO #### [facility] [address] [place] [phone] Car Spotter: Fernando Matta MD CO2 [Moles/Vol] 25 mmol/L Normal 20-31 [facility] Comment on above: Performed By: #### B MPX, CDP, MG, POLLO #### [facility] [address] [place] [address] [phone] Car Spotter: Fernando Matta MD Creatinine [Mass/Vol] 0.7 mg/dL Normal 0.6-0.9 [facility] Comment on above: Performed By: #### B MPX, CDP, MG, POLLO #### [facility] [address] [place] [address] [phone] Car Spotter: Fernando Matta MD GFR/1.73 sq M.predicted among non-blacks MDRD (S/P/Bld) [Vol rate/Area] mL/min/{1.73_m2} Normal >60 [facility] Comment on above: Result Comment: These results are not intended for use in patients <18 years of age. eGFR results are calculated without a race factor using the 2020 CKD-EPI equation. Careful clinical correlation is recommended, particularly when comparing to results calculated using previous equations. The CKD-EPI equation is less accurate in patients with extremes of muscle mass, extra-renal metabolism of creatine, excessive creatine ingestion, or following therapy that affects renal tubular secretion. Performed By: #### B MPX, CDP, MG, POLLO #### [facility] [address] [place] [phone] Car Spotter: Fernando Matta MD Glucose [Mass/Vol] 96 mg/dL Normal 74-99 [facility] Comment on above: Performed By: #### B MPX, CDP, MG, POLLO #### [facility] [address] [place] [phone] Car Spotter: Fernando Matta MD Potassium [Moles/Vol] 3.8 mmol/L Normal 3.7-5.3 [facility] Comment on above: Performed By: #### B MPX, CDP, MG, POLLO #### [facility] [address] [place] [address] Car Spotter: Fernando Matta MD Sodium [Moles/Vol] 139 mmol/L Normal 136-145 [facility] Comment on above: Performed By: #### B MPX, CDP, MG, POLLO #### [address] [address] Car Spotter: Fernando Matta MD Urea nitrogen [Mass/Vol] 9 mg/dL Normal 8-23 [facility] Comment on above: Performed By: #### B MPX, CDP, MG, POLLO #### [facility] [address] [place] [address] Car Spotter: Fernando Matta MD CBC with Diffon 11-15-2024 Abs. Basophil 0.04 k/uL Normal 0.00-0.20 [facility] Comment on above: Performed By: #### B MPX, CDP, MG, POLLO #### [facility] [address] [place] [phone] Car Spotter: Fernando Matta MD Abs.Imm.Granulocyte <0.03 Normal 0.00-0.30 [facility] Comment on above: Performed By: #### B MPX, CDP, MG, POLLO #### [facility] [address] [place] [address] Car Spotter: Fernando Matta MD Abs.Neutrophil (Seg) 3.98 k/uL Normal 1.50-8.10 [facility] Comment on above: Performed By: #### B MPX, CDP, MG, POLLO #### [facility] [address] [place] [address] Car Spotter: Fernando Matta MD Basophils/100 WBC (Bld) 1 % Normal 0-2 [facility] Comment on above: Performed By: #### B MPX, CDP, MG, POLLO #### [facility] [address] [place] [address] Car Spotter: Fernando Matta MD Eosinophils (Bld) [#/Vol] 0.32 10*3/uL Normal 0.00-0.44 [facility] Comment on above: Performed By: #### B MPX, CDP, MG, POLLO #### [address] [address] Car Spotter: Fernando Matta MD Eosinophils/100 WBC (Bld) 5 % High 1-4 [facility] Comment on above: Performed By: #### B MPX, CDP, MG, POLLO #### [place] [address] Car Spotter: Fernando Matta MD Erythrocyte distribution width (RBC) [Ratio] 17.1 % High 11.8-14.4 [facility] Comment on above: Performed By: #### B MPX, CDP, MG, POLLO #### [facility] [address] [place] [address] Car Spotter: Fernando Matta MD Hematocrit (Bld) [Volume fraction] 24.8 % Low 36.3-47.1 [facility] Comment on above: Performed By: #### B MPX, CDP, MG, POLLO #### [facility] [address] [place] [address] Car Spotter: Fernando Matta MD Hemoglobin (Bld) [Mass/Vol] 7.3 g/dL Low 11.9-15.1 [facility] Comment on above: Performed By: #### B MPX, CDP, MG, POLLO #### [facility] [address] [place] [phone] Car Spotter: Fernando Matta MD Immature granulocytes/100 WBC (Bld) 0 % Normal 0 [facility] Comment on above: Performed By: #### B MPX, CDP, MG, POLLO #### [address] [address] Car Spotter: Fernando Matta MD Lymphocytes (Bld) [#/Vol] 1.24 10*3/uL Normal 1.10-3.70 [facility] Comment on above: Performed By: #### B MPX, CDP, MG, POLLO #### [address] [address] Car Spotter: Fernando Matta MD Lymphocytes/100 WBC (Bld) 20 % Low 24-43 [facility] Comment on above: Performed By: #### B MPX, CDP, MG, POLLO #### [place] [address] Car Spotter: Fernando Matta MD MCH (RBC) [Entitic mass] 24.8 pg Low 25.2-33.5 [facility] Comment on above: Performed By: #### B MPX, CDP, MG, POLLO #### [place] [address] Car Spotter: Fernando Matta MD MCHC (RBC) [Mass/Vol] 29.4 g/dL Normal 28.4-34.8 [facility] Comment on above: Performed By: #### B MPX, CDP, MG, POLLO #### [place] [address] Car Spotter: Fernando Matta MD MCV (RBC) [Entitic vol] 84.4 fL Normal 82.6-102.9 [facility] Comment on above: Performed By: #### B MPX, CDP, MG, POLLO #### [address] [address] Car Spotter: Fernando Matta MD Monocytes (Bld) [#/Vol] 0.65 10*3/uL Normal 0.10-1.20 [facility] Comment on above: Performed By: #### B MPX, CDP, MG, POLLO #### [address] [address] Car Spotter: Fernando Matta MD Monocytes/100 WBC (Bld) 10 % Normal 3-12 [facility] Comment on above: Performed By: #### B MPX, CDP, MG, POLLO #### [address] [address] Car Spotter: Fernando Matta MD Neutrophil (Seg) 64 % Normal 36-65 [facility] Comment on above: Performed By: #### B MPX, CDP, MG, POLLO #### [address] [address] Car Spotter: Fernando Matta MD NRBC Automated 0.0 per 100 WBC Normal 0.0 [facility] Comment on above: Performed By: #### B MPX, CDP, MG, POLLO #### [address] [address] Car Spotter: Fernando Matta MD Platelet mean volume (Bld) [Entitic vol] 10.8 fL Normal 8.1-13.5 [facility] Comment on above: Performed By: #### B MPX, CDP, MG, POLLO #### [address] [address] Car Spotter: Fernando Matta MD Platelets (Bld) [#/Vol] 184 10*3/uL Normal 138-453 [facility] Comment on above: Performed By: #### B MPX, CDP, MG, POLLO #### [address] [address] Car Spotter: Fernando Matta MD RBC (Bld) [#/Vol] 2.94 10*6/uL Low 3.95-5.11 [facility] Comment on above: Performed By: #### B MPX, CDP, MG, POLLO #### [facility] [address] [place] [address] Car Spotter: Fernando Matta MD RBC morphology finding Nom (Bld) ANISOCYTOSIS PRESENT Normal [facility] Comment on above: Performed By: #### B MPX, CDP, MG, POLLO #### [facility] [address] [place] [address] Car Spotter: Fernando Matta MD WBC (Bld) [#/Vol] 6.2 10*3/uL Normal 3.5-11.3 [facility] Comment on above: Performed By: #### B MPX, CDP, MG, POLLO #### [facility] [address] [place] [address] Car Spotter: Fernando Matta MD Basic Metab w/rfx MGon 11-14 Anion gap [Moles/Vol] 8 mmol/L Low 9-16 [facility] Comment on above: Performed By: #### B MPX, CDP, MG, POLLO #### [facility] [address] [place] [address] Car Spotter: Fernando Matta MD Calcium [Mass/Vol] 8.4 mg/dL Low 8.6-10.4 [facility] Comment on above: Performed By: #### B MPX, CDP, MG, POLLO #### [facility] [address] [place] [address] Car Spotter: Fernando Matta MD Chloride [Moles/Vol] 107 mmol/L Normal 98-107 [facility] Comment on above: Performed By: #### B MPX, CDP, MG, POLLO #### [facility] [address] [place] [address] Car Spotter: Fernando Matta MD CO2 [Moles/Vol] 24 mmol/L Normal 20-31 [facility] Comment on above: Performed By: #### B MPX, CDP, MG, POLLO #### [facility] [address] [place] [address] Car Spotter: Fernando Matta MD Creatinine [Mass/Vol] 0.6 mg/dL Normal 0.6-0.9 [facility] Comment on above: Performed By: #### B MPX, CDP, MG, POLLO #### [facility] [address] [place] [address] Car Spotter: Fernando Matta MD GFR/1.73 sq M.predicted among non-blacks MDRD (S/P/Bld) [Vol rate/Area] mL/min/{1.73_m2} Normal >60 [facility] Comment on above: Result Comment: These results are not intended for use in patients <18 years of age. eGFR results are calculated without a race factor using the 2020 CKD-EPI equation. Careful clinical correlation is recommended, particularly when comparing to results calculated using previous equations. The CKD-EPI equation is less accurate in patients with extremes of muscle mass, extra-renal metabolism of creatine, excessive creatine ingestion, or following therapy that affects renal tubular secretion. Performed By: #### B MPX, CDP, MG, POLLO #### [facility] [address] [place] [address] Car Spotter: Fernando Matta MD Glucose [Mass/Vol] 101 mg/dL High 74-99 [facility] Comment on above: Performed By: #### B MPX, CDP, MG, POLLO #### [facility] [address] [place] [address] Car Spotter: Fernando Matta MD Potassium [Moles/Vol] 3.6 mmol/L Low 3.7-5.3 [facility] Comment on above: Performed By: #### B MPX, CDP, MG, POLLO #### [facility] [address] [place] [address] Car Spotter: Fernando Matta MD Sodium [Moles/Vol] 139 mmol/L Normal 136-145 [facility] Comment on above: Performed By: #### B MPX, CDP, MG, POLLO #### [place] [address] Car Spotter: Fernando Matta MD Urea nitrogen [Mass/Vol] 6 mg/dL Low 8-23 [facility] Comment on above: Performed By: #### B MPX, CDP, MG, POLLO #### [place] [address] Car Spotter: Fernando Matta MD CBC with Diffon 11-14-2024 Abs. Basophil 0.05 k/uL Normal 0.00-0.20 [facility] Comment on above: Performed By: #### B MPX, CDP, MG, POLLO #### [place] [address] Car Spotter: Fernando Matta MD Abs.Imm.Granulocyte <0.03 Normal 0.00-0.30 [facility] Comment on above: Performed By: #### B MPX, CDP, MG, POLLO #### [place] [address] Car Spotter: Fernando Matta MD Abs.Neutrophil (Seg) 4.02 k/uL Normal 1.50-8.10 [facility] Comment on above: Performed By: #### B MPX, CDP, MG, POLLO #### [place] [address] Car Spotter: Fernando Matta MD Basophils/100 WBC (Bld) 1 % Normal 0-2 [facility] Comment on above: Performed By: #### B MPX, CDP, MG, POLLO #### [place] [address] Car Spotter: Fernando Matta MD Eosinophils (Bld) [#/Vol] 0.15 10*3/uL Normal 0.00-0.44 [facility] Comment on above: Performed By: #### B MPX, CDP, MG, POLLO #### [address] [address] Car Spotter: Fernando Matta MD Eosinophils/100 WBC (Bld) 2 % Normal 1-4 [facility] Comment on above: Performed By: #### B MPX, CDP, MG, POLLO #### [place] [address] Car Spotter: Fernando Matta MD Erythrocyte distribution width (RBC) [Ratio] 16.8 % High 11.8-14.4 [facility] Comment on above: Performed By: #### B MPX, CDP, MG, POLLO #### [place] [address] Car Spotter: Fernando Matta MD Hematocrit (Bld) [Volume fraction] 24.6 % Low 36.3-47.1 [facility] Comment on above: Performed By: #### B MPX, CDP, MG, POLLO #### [place] [address] Car Spotter: Fernando Matta MD Hemoglobin (Bld) [Mass/Vol] 7.3 g/dL Low 11.9-15.1 [facility] Comment on above: Performed By: #### B MPX, CDP, MG, POLLO #### [place] [address] Car Spotter: Fernando Matta MD Immature granulocytes/100 WBC (Bld) 0 % Normal 0 [facility] Comment on above: Performed By: #### B MPX, CDP, MG, POLLO #### [address] [address] Car Spotter: Fernando Matta MD Lymphocytes (Bld) [#/Vol] 1.61 10*3/uL Normal 1.10-3.70 [facility] Comment on above: Performed By: #### B MPX, CDP, MG, POLLO #### [address] [address] Car Spotter: Fernando Matta MD Lymphocytes/100 WBC (Bld) 25 % Normal 24-43 [facility] Comment on above: Performed By: #### B MPX, CDP, MG, POLLO #### [place] [address] Car Spotter: Fernando Matta MD MCH (RBC) [Entitic mass] 25.0 pg Low 25.2-33.5 [facility] Comment on above: Performed By: #### B MPX, CDP, MG, POLLO #### [place] [address] Car Spotter: Fernando Matta MD MCHC (RBC) [Mass/Vol] 29.7 g/dL Normal 28.4-34.8 [facility] Comment on above: Performed By: #### B MPX, CDP, MG, POLLO #### [place] [address] Car Spotter: Fernando Matta MD MCV (RBC) [Entitic vol] 84.2 fL Normal 82.6-102.9 [facility] Comment on above: Performed By: #### B MPX, CDP, MG, POLLO #### [place] [address] Car Spotter: Fernando Matta MD Monocytes (Bld) [#/Vol] 0.67 10*3/uL Normal 0.10-1.20 [facility] Comment on above: Performed By: #### B MPX, CDP, MG, POLLO #### [address] [address] Car Spotter: Fernando Matta MD Monocytes/100 WBC (Bld) 10 % Normal 3-12 [facility] Comment on above: Performed By: #### B MPX, CDP, MG, POLLO #### [address] [address] Car Spotter: Fernando Matta MD Neutrophil (Seg) 62 % Normal 36-65 [facility] Comment on above: Performed By: #### B MPX, CDP, MG, POLLO #### [address] [address] Car Spotter: Fernando Matta MD NRBC Automated 0.0 per 100 WBC Normal 0.0 [facility] Comment on above: Performed By: #### B MPX, CDP, MG, POLLO #### [address] [address] Car Spotter: Fernando Matta MD Platelet mean volume (Bld) [Entitic vol] 11.3 fL Normal 8.1-13.5 [facility] Comment on above: Performed By: #### B MPX, CDP, MG, POLLO #### [address] [address] Car Spotter: Fernando Matta MD Platelets (Bld) [#/Vol] 181 10*3/uL Normal 138-453 [facility] Comment on above: Performed By: #### B MPX, CDP, MG, POLLO #### [address] [address] Car Spotter: Fernando Matta MD RBC (Bld) [#/Vol] 2.92 10*6/uL Low 3.95-5.11 [facility] Comment on above: Performed By: #### B MPX, CDP, MG, POLLO #### [address] [address] Car Spotter: Fernando Matta MD RBC morphology finding Nom (Bld) ANISOCYTOSIS PRESENT Normal [facility] Comment on above: Performed By: #### B MPX, CDP, MG, POLLO #### [facility] [address] [place] [address] Car Spotter: Fernando Matta MD WBC (Bld) [#/Vol] 6.5 10*3/uL Normal 3.5-11.3 [facility] Comment on above: Performed By: #### B MPX, CDP, MG, POLLO #### [facility] [address] [place] [address] Car Spotter: Fernando Matta MD Magnesiumon 11-14-2024 Magnesium [Mass/Vol] 2.1 mg/dL Normal 1.6-2.4 [facility] Comment on above: Performed By: #### B MPX, CDP, MG, POLLO #### [facility] [address] [place] [address] Car Spotter: Fernando Matta MD Phosphorus, Inorg.on 025 Phosphorus, Inorg. 2.3 mg/dL Low 2.5-4.5 [facility] Comment on above: Performed By: #### B MPX, CDP, MG, POLLO #### [facility] [address] [place] [address] Car Spotter: Fernando Matta MD Basic Metab w/rfx MGon 11-13 Anion gap [Moles/Vol] 10 mmol/L Normal 9-16 [facility] Comment on above: Performed By: #### B MPX, CDP, MG, POLLO #### [facility] [address] [place] [address] Car Spotter: Fernando Matta MD Calcium [Mass/Vol] 8.4 mg/dL Low 8.6-10.4 [facility] Comment on above: Performed By: #### B MPX, CDP, MG, POLLO #### [facility] [address] [place] [address] Car Spotter: Fernando Matta MD Chloride [Moles/Vol] 108 mmol/L High 98-107 [facility] Comment on above: Performed By: #### B MPX, CDP, MG, POLLO #### [facility] [place] [address] Car Spotter: Fernando Matta MD CO2 [Moles/Vol] 21 mmol/L Normal 20-31 [facility] Comment on above: Performed By: #### B MPX, CDP, MG, POLLO #### [facility] [address] [place] [address] Car Spotter: Fernando Matta MD Creatinine [Mass/Vol] 0.7 mg/dL Normal 0.6-0.9 [facility] Comment on above: Performed By: #### B MPX, CDP, MG, POLLO #### [facility] [address] [place] [address] Car Spotter: Fernando Matta MD GFR/1.73 sq M.predicted among non-blacks MDRD (S/P/Bld) [Vol rate/Area] mL/min/{1.73_m2} Normal >60 [facility] Comment on above: Result Comment: These results are not intended for use in patients <18 years of age. eGFR results are calculated without a race factor using the 2020 CKD-EPI equation. Careful clinical correlation is recommended, particularly when comparing to results calculated using previous equations. The CKD-EPI equation is less accurate in patients with extremes of muscle mass, extra-renal metabolism of creatine, excessive creatine ingestion, or following therapy that affects renal tubular secretion. Performed By: #### B MPX, CDP, MG, POLLO #### [facility] [place] [address] Car Spotter: Fernando Matta MD Glucose [Mass/Vol] 100 mg/dL High 74-99 [facility] Comment on above: Performed By: #### B MPX, CDP, MG, POLLO #### [facility] [address] [place] [address] Car Spotter: Fernando Matta MD Potassium [Moles/Vol] 4.0 mmol/L Normal 3.7-5.3 [facility] Comment on above: Performed By: #### B MPX, CDP, MG, POLLO #### [address] [address] Car Spotter: Fernando Matta MD Sodium [Moles/Vol] 139 mmol/L Normal 136-145 [facility] Comment on above: Performed By: #### B MPX, CDP, MG, POLLO #### [address] [address] Car Spotter: Fernando Matta MD Urea nitrogen [Mass/Vol] 6 mg/dL Low 8-23 [facility] Comment on above: Performed By: #### B MPX, CDP, MG, POLLO #### [place] [address] Car Spotter: Fernando Matta MD CBC with Diffon 11-13-2024 Abs. Basophil <0.03 Normal 0.00-0.20 [facility] Comment on above: Performed By: #### B MPX, CDP, MG, POLLO #### [facility] [address] [place] [address] Car Spotter: Fernando Matta MD Abs. Eosinophil <0.03 Normal 0.00-0.44 [facility] Comment on above: Performed By: #### B MPX, CDP, MG, POLLO #### [facility] [address] [place] [address] Car Spotter: Fernando Matta MD Abs.Imm.Granulocyte <0.03 Normal 0.00-0.30 [facility] Comment on above: Performed By: #### B MPX, CDP, MG, POLLO #### [facility] [address] [place] [address] Car Spotter: Fernando Matta MD Abs.Neutrophil (Seg) 6.19 k/uL Normal 1.50-8.10 [facility] Comment on above: Performed By: #### B MPX, CDP, MG, POLLO #### [facility] [address] [place] [address] Car Spotter: Fernando Matta MD Basophils/100 WBC (Bld) 0 % Normal 0-2 [facility] Comment on above: Performed By: #### B MPX, CDP, MG, POLLO #### [facility] [address] [place] [address] Car Spotter: Fernando Matta MD Eosinophils/100 WBC (Bld) 0 % Low 1-4 [facility] Comment on above: Performed By: #### B MPX, CDP, MG, POLLO #### [facility] [address] [place] [address] Car Spotter: Fernando Matta MD Erythrocyte distribution width (RBC) [Ratio] 16.4 % High 11.8-14.4 [facility] Comment on above: Performed By: #### B MPX, CDP, MG, POLLO #### [facility] [address] [place] [address] Car Spotter: Fernando Matta MD Hematocrit (Bld) [Volume fraction] 26.8 % Low 36.3-47.1 [facility] Comment on above: Performed By: #### B MPX, CDP, MG, POLLO #### [facility] [address] [place] [address] Car Spotter: Fernando Matta MD Hemoglobin (Bld) [Mass/Vol] 8.0 g/dL Low 11.9-15.1 [facility] Comment on above: Performed By: #### B MPX, CDP, MG, POLLO #### [facility] [address] [place] [address] Car Spotter: Fernando Matta MD Immature granulocytes/100 WBC (Bld) 0 % Normal 0 [facility] Comment on above: Performed By: #### B MPX, CDP, MG, POLLO #### [facility] [address] [place] [address] Car Spotter: Fernando Matta MD Lymphocytes (Bld) [#/Vol] 0.85 10*3/uL Low 1.10-3.70 [facility] Comment on above: Performed By: #### B MPX, CDP, MG, POLLO #### [facility] [address] [place] [address] Car Spotter: Fernando Matta MD Lymphocytes/100 WBC (Bld) 11 % Low 24-43 [facility] Comment on above: Performed By: #### B MPX, CDP, MG, POLLO #### [facility] [address] [place] [address] Car Spotter: Fernando Matta MD MCH (RBC) [Entitic mass] 25.0 pg Low 25.2-33.5 [facility] Comment on above: Performed By: #### B MPX, CDP, MG, POLLO #### [facility] [address] [place] [address] Car Spotter: Fernando Matta MD MCHC (RBC) [Mass/Vol] 29.9 g/dL Normal 28.4-34.8 [facility] Comment on above: Performed By: #### B MPX, CDP, MG, POLLO #### [facility] [address] [place] [address] Car Spotter: Fernando Matta MD MCV (RBC) [Entitic vol] 83.8 fL Normal 82.6-102.9 [facility] Comment on above: Performed By: #### B MPX, CDP, MG, POLLO #### [facility] [address] [place] [address] Car Spotter: Fernando Matta MD Monocytes (Bld) [#/Vol] 0.66 10*3/uL Normal 0.10-1.20 [facility] Comment on above: Performed By: #### B MPX, CDP, MG, POLLO #### [address] [address] Car Spotter: Fernando Matta MD Monocytes/100 WBC (Bld) 9 % Normal 3-12 [facility] Comment on above: Performed By: #### B MPX, CDP, MG, POLLO #### [address] [address] Car Spotter: Fernando Matta MD Neutrophil (Seg) 80 % High 36-65 [facility] Comment on above: Performed By: #### B MPX, CDP, MG, POLLO #### [address] [address] Car Spotter: Fernando Matta MD NRBC Automated 0.0 per 100 WBC Normal 0.0 [facility] Comment on above: Performed By: #### B MPX, CDP, MG, POLLO #### [address] [address] Car Spotter: Fernando Matta MD Platelet mean volume (Bld) [Entitic vol] 11.7 fL Normal 8.1-13.5 [facility] Comment on above: Performed By: #### B MPX, CDP, MG, POLLO #### [facility] [address] [place] [address] Car Spotter: Fernando Matta MD Platelets (Bld) [#/Vol] 215 10*3/uL Normal 138-453 [facility] Comment on above: Performed By: #### B MPX, CDP, MG, POLLO #### [address] [address] Car Spotter: Fernando Matta MD RBC (Bld) [#/Vol] 3.20 10*6/uL Low 3.95-5.11 [facility] Comment on above: Performed By: #### B MPX, CDP, MG, POLLO #### [address] [address] Car Spotter: Fernando Matta MD RBC morphology finding Nom (Bld) ANISOCYTOSIS PRESENT Normal [facility] Comment on above: Performed By: #### B MPX, CDP, MG, POLLO #### [address] [address] Car Spotter: Fernando Matta MD WBC (Bld) [#/Vol] 7.7 10*3/uL Normal 3.5-11.3 [facility] Comment on above: Performed By: #### B MPX, CDP, MG, POLLO #### [address] [address] Car Spotter: Fernando Matta MD Magnesiumon 11-13-2024 Magnesium [Mass/Vol] 2.0 mg/dL Normal 1.6-2.4 [facility] Comment on above: Performed By: #### B MPX, CDP, MG, POLLO #### [facility] [address] [place] [address] Car Spotter: Fernando Matta MD Phosphorus, Inorg.on 025 Phosphorus, Inorg. 3.1 mg/dL Normal 2.5-4.5 [facility] Comment on above: Performed By: #### B MPX, CDP, MG, POLLO #### [facility] [address] [place] [address] Car Spotter: Fernando Matta MD Basic Metab w/rfx MGon 11-12 Anion gap [Moles/Vol] 10 mmol/L Normal 9-16 [facility] Comment on above: Performed By: #### P HO, CDP, BMPX, MG #### [facility] [address] [place] [address] [phone] Car Spotter: Fernando Matta MD Calcium [Mass/Vol] 8.7 mg/dL Normal 8.6-10.4 [facility] Comment on above: Performed By: #### P HO, CDP, BMPX, MG #### [facility] [address] [place] [address] Car Spotter: Fernando Matta MD Chloride [Moles/Vol] 105 mmol/L Normal 98-107 [facility] Comment on above: Performed By: #### P HO, CDP, BMPX, MG #### [facility] [address] [place] [address] Car Spotter: Fernando Matta MD CO2 [Moles/Vol] 21 mmol/L Normal 20-31 [facility] Comment on above: Performed By: #### P HO, CDP, BMPX, MG #### [facility] [address] [place] [address] Car Spotter: Fernando Matta MD Creatinine [Mass/Vol] 0.6 mg/dL Normal 0.6-0.9 [facility] Comment on above: Performed By: #### P HO, CDP, BMPX, MG #### [facility] [address] [place] [address] [phone] Car Spotter: Fernando Matta MD GFR/1.73 sq M.predicted among non-blacks MDRD (S/P/Bld) [Vol rate/Area] mL/min/{1.73_m2} Normal >60 [facility] Comment on above: Result Comment: These results are not intended for use in patients <18 years of age. eGFR results are calculated without a race factor using the 2020 CKD-EPI equation. Careful clinical correlation is recommended, particularly when comparing to results calculated using previous equations. The CKD-EPI equation is less accurate in patients with extremes of muscle mass, extra-renal metabolism of creatine, excessive creatine ingestion, or following therapy that affects renal tubular secretion. Performed By: #### P HO, CDP, BMPX, MG #### [facility] [address] [place] [address] Car Spotter: Fernando Matta MD Glucose [Mass/Vol] 85 mg/dL Normal 74-99 [facility] Comment on above: Performed By: #### P HO, CDP, BMPX, MG #### [facility] [address] [place] [address] Car Spotter: Fernando Matta MD Potassium [Moles/Vol] 3.8 mmol/L Normal 3.7-5.3 [facility] Comment on above: Performed By: #### P HO, CDP, BMPX, MG #### [facility] [address] [place] [address] Car Spotter: Fernando Matta MD Sodium [Moles/Vol] 136 mmol/L Normal 136-145 [facility] Comment on above: Performed By: #### P HO, CDP, BMPX, MG #### [facility] [address] [place] [address] Car Spotter: Fernando Matta MD Urea nitrogen [Mass/Vol] 8 mg/dL Normal 8-23 [facility] Comment on above: Performed By: #### P HO, CDP, BMPX, MG #### [facility] [address] [place] [address] Car Spotter: Fernando Matta MD CBC with Diffon 11-12-2024 Abs. Basophil 0.03 k/uL Normal 0.00-0.20 [facility] Comment on above: Performed By: #### P HO, CDP, BMPX, MG #### [facility] [address] [place] [address] Car Spotter: Fernando Matta MD Abs.Imm.Granulocyte <0.03 Normal 0.00-0.30 [facility] Comment on above: Performed By: #### P HO, CDP, BMPX, MG #### [facility] [address] [place] [address] Car Spotter: Fernando Matta MD Abs.Neutrophil (Seg) 4.57 k/uL Normal 1.50-8.10 [facility] Comment on above: Performed By: #### P HO, CDP, BMPX, MG #### [facility] [address] [place] [address] Car Spotter: Fernando Matta MD Basophils/100 WBC (Bld) 0 % Normal 0-2 [facility] Comment on above: Performed By: #### P HO, CDP, BMPX, MG #### [place] [address] Car Spotter: Fernando Matta MD Eosinophils (Bld) [#/Vol] 0.08 10*3/uL Normal 0.00-0.44 [facility] Comment on above: Performed By: #### P HO, CDP, BMPX, MG #### [place] [address] Car Spotter: Fernando Matta MD Eosinophils/100 WBC (Bld) 1 % Normal 1-4 [facility] Comment on above: Performed By: #### P HO, CDP, BMPX, MG #### [facility] [address] [place] [address] Car Spotter: Fernando Matta MD Erythrocyte distribution width (RBC) [Ratio] 16.6 % High 11.8-14.4 [facility] Comment on above: Performed By: #### P HO, CDP, BMPX, MG #### [facility] [address] [place] [address] Car Spotter: Fernando Matta MD Hematocrit (Bld) [Volume fraction] 27.9 % Low 36.3-47.1 [facility] Comment on above: Performed By: #### P HO, CDP, BMPX, MG #### [facility] [address] [place] [address] Car Spotter: Fernando Matta MD Hemoglobin (Bld) [Mass/Vol] 8.4 g/dL Low 11.9-15.1 [facility] Comment on above: Performed By: #### P HO, CDP, BMPX, MG #### [facility] [address] [place] [address] Car Spotter: Frenando Matta MD Immature granulocytes/100 WBC (Bld) 0 % Normal 0 [facility] Comment on above: Performed By: #### P HO, CDP, BMPX, MG #### [facility] [address] [place] [address] Car Spotter: Fernando Matta MD Lymphocytes (Bld) [#/Vol] 1.47 10*3/uL Normal 1.10-3.70 [facility] Comment on above: Performed By: #### P HO, CDP, BMPX, MG #### [facility] [address] [place] [address] Car Spotter: Fernando Matta MD Lymphocytes/100 WBC (Bld) 21 % Low 24-43 [facility] Comment on above: Performed By: #### P HO, CDP, BMPX, MG #### [facility] [address] [place] [address] Car Spotter: Fernando Matta MD MCH (RBC) [Entitic mass] 24.7 pg Low 25.2-33.5 [facility] Comment on above: Performed By: #### P HO, CDP, BMPX, MG #### [facility] [address] [place] [address] Car Spotter: Fernando Matta MD MCHC (RBC) [Mass/Vol] 30.1 g/dL Normal 28.4-34.8 [facility] Comment on above: Performed By: #### P HO, CDP, BMPX, MG #### [address] [address] Car Spotter: Fernando Matta MD MCV (RBC) [Entitic vol] 82.1 fL Low 82.6-102.9 [facility] Comment on above: Performed By: #### P HO, CDP, BMPX, MG #### [address] [address] Car Spotter: Fernando Matta MD Monocytes (Bld) [#/Vol] 0.80 10*3/uL Normal 0.10-1.20 [facility] Comment on above: Performed By: #### P HO, CDP, BMPX, MG #### [place] [address] Car Spotter: Fernando Matta MD Monocytes/100 WBC (Bld) 12 % Normal 3-12 [facility] Comment on above: Performed By: #### P HO, CDP, BMPX, MG #### [address] [address] Car Spotter: Fernando Matta MD Neutrophil (Seg) 66 % High 36-65 [facility] Comment on above: Performed By: #### P HO, CDP, BMPX, MG #### [address] [address] Car Spotter: Fernando Matta MD NRBC Automated 0.0 per 100 WBC Normal 0.0 [facility] Comment on above: Performed By: #### P HO, CDP, BMPX, MG #### [facility] [address] [place] [address] Car Spotter: Fernando Matta MD Platelet mean volume (Bld) [Entitic vol] 11.6 fL Normal 8.1-13.5 [facility] Comment on above: Performed By: #### P HO, CDP, BMPX, MG #### [facility] [address] [place] [address] Car Spotter: Fernando Matta MD Platelets (Bld) [#/Vol] 221 10*3/uL Normal 138-453 [facility] Comment on above: Performed By: #### P HO, CDP, BMPX, MG #### [facility] [address] [place] [address] Car Spotter: Fernando Matta MD RBC (Bld) [#/Vol] 3.40 10*6/uL Low 3.95-5.11 [facility] Comment on above: Performed By: #### P HO, CDP, BMPX, MG #### [facility] [address] [place] [address] Car Spotter: Fernando Matta MD RBC morphology finding Nom (Bld) ANISOCYTOSIS PRESENT Normal [facility] Comment on above: Result Comment: MICR OCYTOSIS PRESENT Performed By: #### P HO, CDP, BMPX, MG #### [facility] [address] [place] [address] Car Spotter: Fernando Matta MD WBC (Bld) [#/Vol] 7.0 10*3/uL Normal 3.5-11.3 [facility] Comment on above: Performed By: #### P HO, CDP, BMPX, MG #### [facility] [address] [place] [address] Car Spotter: Fernando Matta MD FLUORO FOR SURGICAL PROCEDUR ESon 11-12-2024 FLUORO FOR SURGICAL PROCEDURES Radiology exam is complete. No Radiologist dictation. Please follow up with ordering provider. Final result Normal [facility] Magnesiumon 11-12-2024 Magnesium [Mass/Vol] 2.0 mg/dL Normal 1.6-2.4 [facility] Comment on above: Performed By: #### P HO, CDP, BMPX, MG #### [facility] [address] [place], [place] [phone] Car Spotter: Fernando Matta MD Phosphorus, Inorg.on 025 Phosphorus, Inorg. 2.9 mg/dL Normal 2.5-4.5 [facility] Comment on above: Performed By: #### P HO, CDP, BMPX, MG #### [facility] [address] [place], [place] [id number] Car Spotter: Fernando Matta MD XR SHOULDER RIGHT (MIN 2 VIE WS)on 11-12-2024 XR SHOULDER RIGHT (MIN 2 VIEWS) EXAMINATION: 3 XRAY VIEWS OF THE RIGHT SHOULDER 11/12/2024 6:26 pm COMPARISON: 11/11/2024 HISTORY: ORDERING SYSTEM PROVIDED HISTORY: post op in pacu TECHNOLOGIST PROVIDED HISTORY: post op in pacu FINDINGS: There is mild narrowing of the glenohumeral joint. There is a metallic surgical fixation plate along the humeral head and neck laterally which is held in place with multiple surgical screws. There is a a comminuted surgical neck fracture which is now in anatomical position. There is edema and air in the soft tissues lateral to the shoulder. There are mild hypertrophic changes of the AC joint. The bones are osteopenic. No dislocation is seen. The scapula is intact. IMPRESSION: Status post ORIF of a humeral neck fracture and which is now in anatomical position with extensive postop changes in the soft tissues around the shoulder. Mild narrowing of the glenohumeral joint and mild hypertrophic changes of the AC joint. Interpreted by: Mihai Reza MD Signed by: Mihai Reza MD 11/12/24 Final result Normal [facility] Albuminon 11-11-2024 Albumin [Mass/Vol] 4.1 g/dL Normal 3.5-5.2 [facility] Comment on above: Performed By: #### B MPX, CDP, MG, POLLO #### [facility] [address] [place], [place] [phone] Car Spotter: Fernando Matta MD B12/Folate Panelon Cobalamin (Vitamin B12) [Mass/Vol] 197 pg/mL Low 232-1245 [facility] Comment on above: Performed By: #### B MPX, CDP, MG, POLLO #### [facility] [address] [place] [address] Car Spotter: Fernando Matta MD Folic Acid 11.8 ng/mL Normal 4.8-24.2 [facility] Comment on above: Performed By: #### B MPX, CDP, MG, POLLO #### [facility] [address] [place] [address] Car Spotter: Fernando Matta MD CT HEAD WO CONTRASTon 2024 CT HEAD WO CONTRAST EXAMINATION: CT OF THE HEAD WITHOUT CONTRAST 11/11/2024 10:06 pm TECHNIQUE: CT of the head was performed without the administration of intravenous contrast. Automated exposure control, iterative reconstruction, and/or weight based adjustment of the mA/kV was utilized to reduce the radiation dose to as low as reasonably achievable. COMPARISON: None. HISTORY: ORDERING SYSTEM PROVIDED HISTORY: fall from standing TECHNOLOGIST PROVIDED HISTORY: fall from standing Decision Support Exception - unselect if not a suspected or confirmed emergency medical condition->Emergency Medical Condition ([place]) Reason for Exam: all from standing FINDINGS: BRAIN/VENTRICLES: There is no acute intracranial hemorrhage, mass effect or midline shift. No abnormal extra-axial fluid collection. The moncada-white differentiation is maintained without evidence of an acute infarct. There is no evidence of hydrocephalus. Intracranial atherosclerosis. ORBITS: The visualized portion of the orbits demonstrate no acute abnormality. SINUSES: The visualized paranasal sinuses and mastoid air cells demonstrate no acute abnormality. SOFT TISSUES/SKULL: No acute abnormality of the visualized skull or soft tissues. IMPRESSION: No acute intracranial abnormality. Interpreted by: Yannick Alexis MD Signed by: Yannick Alexis MD 11/11/24 Final result Normal [facility] CT KNEE LEFT WO CONTRASTon 0 11-11-2024 CT KNEE LEFT WO CONTRAST EXAMINATION: CT OF THE LEFT KNEE WITHOUT CONTRAST 11/11/2024 10:06 pm TECHNIQUE: CT of the left knee was performed without the administration of intravenous contrast. Multiplanar reformatted images are provided for review. Automated exposure control, iterative reconstruction, and/or weight based adjustment of the mA/kV was utilized to reduce the radiation dose to as low as reasonably achievable. COMPARISON: Left knee radiographs 11/11/2024. HISTORY ORDERING SYSTEM PROVIDED HISTORY: Concern for fracture. Trauma from fall TECHNOLOGIST PROVIDED HISTORY: Concern for fracture. Trauma from fall Decision Support Exception - unselect if not a suspected or confirmed emergency medical condition->Emergency Medical Condition ([place]) Reason for Exam: Concern for fracture. Trauma from fall FINDINGS: Bones: There is an acute nondisplaced fracture of the tibial spine from anterior to posterior. A subtle age-indeterminate nondisplaced fracture of the inferior patellar pole is seen. No other fracture identified. No dislocation. A small chronic ossicle is seen within the proximal aspect of the superficial component of the medial collateral ligament. Soft Tissue: The extensor mechanism is intact. No soft tissue gas or foreign body. Atherosclerotic vascular calcifications are noted. Joint: A moderate lipohemarthrosis is seen. No popliteal cyst. Mild tricompartmental degenerative changes. IMPRESSION: 1. Acute nondisplaced fracture of the tibial spine from anterior to posterior. 2. Subtle age-indeterminate nondisplaced fracture of the inferior patellar pole. 3. Moderate lipohemarthrosis. Interpreted by: Jameson Wilhelm MD Signed by: Jameson Wilhelm MD 11/11/24 Final result Normal [facility] CT SHOULDER RIGHT WO CONTRAS Ton 11-11-2024 CT SHOULDER RIGHT WO CONTRAST EXAM: CT RIGHT SHOULDER, WITHOUT IV CONTRAST 11/11/2024 10:18:50 PM TECHNIQUE: Axial images were acquired through the right shoulder without IV contrast. Reformatted images were reviewed. Automated exposure control, iterative reconstruction, and/or weight based adjustment of the mA/kV was utilized to reduce the radiation dose to as low as reasonably achievable. COMPARISON: Radiographs from 11/11/2024. CLINICAL HISTORY: Fracture; thin cuts in all planes please. FINDINGS: BONES: The severely comminuted fracture of the humeral head is again identified. The fracture is impacted. The greater tuberosity is fractured and displaced in the cephalad and posterior direction. The fracture is impacted with cortex projecting into the medullary cavity. The fracture impacts into the anatomic neck. The lesser tuberosity is also fractured. The glenoid is intact. The scapula is intact. The clavicle is intact. The visualized right-sided ribs are intact. JOINTS: No dislocation. The humeral head is mildly high riding. Joint effusion and hemorrhage around the fracture which are expected. The acromioclavicular joint is intact with mild osteoarthritic changes. SOFT TISSUES: The rotator cuff is predominantly intact. No definite fluid in the bursa. No gas in the soft tissues. Edema in the subcutaneous tissues. Edema within the deltoid muscle. No large hematoma in the axilla. No definite muscular tear. The biceps tendon is not well seen. It is displaced by the fracture of the lesser tuberosity. Visualized right lung is unremarkable. IMPRESSION: 1. Severely comminuted fracture of the humeral head, impacted into the anatomic neck, with associated fractures of the greater and lesser tuberosities. No dislocation. 2. Joint effusion and hemorrhage around the fracture, as expected. Interpreted by: Roseann Maldonado MD Signed by: Roseann Maldonado MD 11/11/24 Final result Normal [facility] Hemoglobin A1Con 11-11-2024 Glucose [Mass/Vol] 94 mg/dL Normal [facility] Comment on above: Result Comment: The ADA and AACC recommend providing the estimated average glucose result to permit better patient understanding of their HBA1c result. Performed By: #### B MPX, CDP, MG, POLLO #### [facility] [address] [place] [address] Car Spotter: Fernando Matta MD HbA1c (Bld) [Mass fraction] 4.9 % Normal 4.0-6.0 [facility] Comment on above: Performed By: #### B MPX, CDP, MG, POLLO #### [facility] [address] [place] [address] Car Spotter: Fernando Matta MD TSH w/reflex to FT4on 2024 Thyroid Stim. Horm. 2.07 uIU/mL Normal 0.27-4.20 [facility] Comment on above: Performed By: #### B MPX, CDP, MG, POLLO #### [facility] [address] [place] [address] Car Spotter: Fernando Matta MD Thyroxine, Freeon 11-11-2024 Thyroxine, Free 1.3 ng/dL Normal 0.92-1.68 [facility] Comment on above: Performed By: #### B MPX, CDP, MG, POLLO #### [facility] [address] [place] [address] Car Spotter: Fernando Matta MD Trauma Profileon 11-11-2024 Anion gap [Moles/Vol] 12 mmol/L Normal 9-16 [facility] Comment on above: Performed By: #### B MPX, CDP, MG, POLLO #### [facility] [address] [place] [address] Car Spotter: Fernando Matta MD Chloride [Moles/Vol] 105 mmol/L Normal 98-107 [facility] Comment on above: Performed By: #### B MPX, CDP, MG, POLLO #### [facility] [address] [place] [address] Car Spotter: Fernando Matta MD CO2 [Moles/Vol] 21 mmol/L Normal 20-31 [facility] Comment on above: Performed By: #### B MPX, CDP, MG, POLLO #### [facility] [address] [place] [address] Car Spotter: Fernando Matta MD Creatinine [Mass/Vol] 0.8 mg/dL Normal 0.6-0.9 [facility] Comment on above: Performed By: #### B MPX, CDP, MG, POLLO #### [facility] [address] [place] [address] Car Spotter: Fernando Matta MD Ethanol [Mass/Vol] mg/dL Normal <10 [facility] Comment on above: Performed By: #### B MPX, CDP, MG, POLLO #### [facility] [address] [place] [address] Car Spotter: Fernando Matta MD Ethanol percent <0.010 Normal <0.010 [facility] Comment on above: Performed By: #### B MPX, CDP, MG, POLLO #### [facility] [address] [place] [address] 22871 Car Spotter: Fernando Matta MD GFR/1.73 sq M.predicted among non-blacks MDRD (S/P/Bld) [Vol rate/Area] 81 mL/min/{1.73_m2} Normal >60 [facility] Comment on above: Result Comment: These results are not intended for use in patients <18 years of age. eGFR results are calculated without a race factor using the 2020 CKD-EPI equation. Careful clinical correlation is recommended, particularly when comparing to results calculated using previous equations. The CKD-EPI equation is less accurate in patients with extremes of muscle mass, extra-renal metabolism of creatine, excessive creatine ingestion, or following therapy that affects renal tubular secretion. Performed By: #### B MPX, CDP, MG, POLLO #### [facility] [address] [place] [address] Car Spotter: Fernando Matta MD Glucose [Mass/Vol] 129 mg/dL High 74-99 [facility] Comment on above: Performed By: #### B MPX, CDP, MG, POLLO #### [facility] [address] [place] [address] Car Spotter: Fernando Matta MD Potassium [Moles/Vol] 3.8 mmol/L Normal 3.7-5.3 [facility] Comment on above: Performed By: #### B MPX, CDP, MG, POLLO #### [facility] [address] [place] [address] 78580 Car Spotter: Fernando Matta MD Sodium [Moles/Vol] 138 mmol/L Normal 136-145 [facility] Comment on above: Performed By: #### B MPX, CDP, MG, POLLO #### [facility] [address] [place] [address] [phone] Car Spotter: Fernando Matta MD Urea nitrogen [Mass/Vol] 12 mg/dL Normal 8-23 [facility] Comment on above: Performed By: #### B MPX, CDP, MG, POLLO #### [facility] [address] [place] [address] [phone] Car Spotter: Fernando Matta MD aPTT Coag (Bld) [Time] 23.2 s Normal 23.0-36.5 [facility] Comment on above: Result Comment: IV Heparin Therapy Range: 66.0-92.0 sec Performed By: #### B MPX, CDP, MG, POLLO #### [facility] [address] [place] [address] [phone] Car Spotter: Fernando Matta MD INR Coag (PPP) [Relative time] 1.1 {INR} Normal [facility] Comment on above: Result Comment: Therapeutic Range: Moderate Anticoagulant Intensity: INR = 2.0-3.0 High Anticoagulant Intensity: INR = 2.5-3.5 Performed By: #### B MPX, CDP, MG, POLLO #### [facility] [address] [place] [address] Car Spotter: Fernando Matta MD PT Coag (PPP) [Time] 14.0 s Normal 11.7-14.9 [facility] Comment on above: Performed By: #### B MPX, CDP, MG, POLLO #### [facility] [address] [place] [address] [phone] Car Spotter: Fernando Matta MD HCG Screen, Blood Negative Normal [facility] Comment on above: Result Comment: Spec imens with hCG levels near the threshold of the test (25 mIU/mL) may give a negative or indeterminate result. In such cases, another test should be performed with a new specimen in 48-72 hours. If early is suspected clinically in this setting, correlation with quantitative serum b-hCG level is suggested. [facility] has confirmed the use of plasma for this test. This has not been cleared or approved by the U.S. Food and Drug Administration. The FDA has determined that such clearance is not necessary. Performed By: #### B MPX, CDP, MG, POLLO #### [facility] [address] [address] Car Spotter: Fernando Matta MD Body Temp. 37.0 Normal [facility] Comment on above: Performed By: #### B MPX, CDP, MG, POLLO #### [address] [address] Car Spotter: Fernando Matta MD Carboxy Hgb 0.8 % Normal 0-5 [facility] Comment on above: Result Comment: Reference Range: Non-Smokers 0-2% Average Smoker 2-4% Heavy Smoker <10% Performed By: #### B MPX, CDP, MG, POLLO #### [facility] [address] [place] [address] 9[address]12 Car Spotter: Fernando Matta MD FIO2 INFORMATION NOT PROVIDED Normal [facility] Comment on above: Performed By: #### B MPX, CDP, MG, POLLO #### [facility] [address] [place] [address]40 Car Spotter: Fernando Matta MD HCO3 (Bld) [Moles/Vol] 22.2 mmol/L Low 24-30 [facility] Comment on above: Performed By: #### B MPX, CDP, MG, POLLO #### [facility] [address] [place] [address] 8[address]20 Car Spotter: Fernando Matta MD Negative Base Excess 2.5 mmol/L High 0.0-2.0 [facility] Comment on above: Performed By: #### B MPX, CDP, MG, POLLO #### [facility] [address] [place] [address] Car Spotter: Fernando Matta MD Oxygen saturation in Blood 96.2 % High 60.0-85.0 [facility] Comment on above: Performed By: #### B MPX, CDP, MG, POLLO #### [facility] [address] [place] [address] Car Spotter: Fernando Matta MD pCO2 38.0 mm Hg Low 39-55 [facility] Comment on above: Performed By: #### B MPX, CDP, MG, POLLO #### [facility] [address] [place] [address] 5[address]30 Car Spotter: Fernando Matta MD pH (Bld) 7.384 [pH] Normal 7.320-7.420 [facility] Comment on above: Performed By: #### B MPX, CDP, MG, POLLO #### [address] [address] Car Spotter: Fernando Matta MD pO2 83.4 mm Hg High 30-50 [facility] Comment on above: Performed By: #### B MPX, CDP, MG, POLLO #### [facility] [address] [place] [address]207 Car Spotter: Fernando Matta MD Erythrocyte distribution width (RBC) [Ratio] 16.5 % High 11.8-14.4 [facility] Comment on above: Performed By: #### B MPX, CDP, MG, POLLO #### [facility] [address] [place] [address] 36702 Car Spotter: Fernando Matta MD Hematocrit (Bld) [Volume fraction] 30.2 % Low 36.3-47.1 [facility] Comment on above: Performed By: #### B MPX, CDP, MG, POLLO #### [facility] [address] [place] [address] 32902 Car Spotter: Fernando Matta MD Hemoglobin (Bld) [Mass/Vol] 9.2 g/dL Low 11.9-15.1 [facility] Comment on above: Performed By: #### B MPX, CDP, MG, POLLO #### [address] [address] Car Spotter: Fernando Matta MD MCH (RBC) [Entitic mass] 24.8 pg Low 25.2-33.5 [facility] Comment on above: Performed By: #### B MPX, CDP, MG, POLLO #### [facility] [address] [place] [address] Car Spotter: Fernando Matta MD MCHC (RBC) [Mass/Vol] 30.5 g/dL Normal 28.4-34.8 [facility] Comment on above: Performed By: #### B MPX, CDP, MG, POLLO #### [address] [address] Car Spotter: Fernando Matta MD MCV (RBC) [Entitic vol] 81.4 fL Low 82.6-102.9 [facility] Comment on above: Performed By: #### B MPX, CDP, MG, POLLO #### [address] [address] Car Spotter: Fernando Matta MD NRBC Automated 0.0 per 100 WBC Normal 0.0 [facility] Comment on above: Performed By: #### B MPX, CDP, MG, POLLO #### [address] [address] Car Spotter: Fernando Matta MD Platelet mean volume (Bld) [Entitic vol] 11.0 fL Normal 8.1-13.5 [facility] Comment on above: Performed By: #### B MPX, CDP, MG, POLLO #### [facility] [address] [place] [address] 6[address]48 Car Spotter: Fernando Matta MD Platelets (Bld) [#/Vol] 240 10*3/uL Normal 138-453 [facility] Comment on above: Performed By: #### B MPX, CDP, MG, POLLO #### [facility] [place] [address] Car Spotter: Fernando Matta MD RBC (Bld) [#/Vol] 3.71 10*6/uL Low 3.95-5.11 [facility] Comment on above: Performed By: #### B MPX, CDP, MG, POLLO #### [facility] [place] [address] Car Spotter: Fernando Matta MD WBC (Bld) [#/Vol] 12.0 10*3/uL High 3.5-11.3 [facility] Comment on above: Performed By: #### B MPX, CDP, MG, POLLO #### [facility] [address] [place] [address] Car Spotter: Fernando Matta MD Blood Bank BILL FOR SERVICES PERFORMED Normal [facility] Comment on above: Performed By: #### B MPX, CDP, MG, POLLO #### [facility] [address] [place] [address] Car Spotter: Fernando Matta MD Type + Screenon 11-11-2024 Type + Screen Sample Expiration 11/14/2024,2359 Arm Band Number BE [id number] ABO/Rh(D) O POSITIVE Antibody Screen NEGATIVE Normal [facility] Comment on above: Performed By: #### T YS #### [facility] [address] [place] [address] 70665 Car Spotter: Fernando Matta MD Vitamin D 25 OHon 11-11-2024 Vitamin D 25 OH 13.3 ng/mL Low 30.0-100.0 [facility] Comment on above: Result Comment: Reference Range: Vitamin D status Range Deficiency <20 ng/mL Mild Deficiency 20-30 ng/mL Sufficiency 30-100 ng/mL Toxicity >100 ng/mL Performed By: #### B MPX, CDP, MG, POLLO #### [place] [address] [place] [address] Car Spotter: Fernando Matta MD XR CHEST PORTABLEon 11-12-19 XR CHEST PORTABLE EXAMINATION: ONE XRAY VIEW OF THE CHEST 11/11/2024 10:33 pm COMPARISON: None. HISTORY: ORDERING SYSTEM PROVIDED HISTORY: fall, preop TECHNOLOGIST PROVIDED HISTORY: fall, preop FINDINGS: The lungs are without acute focal process. There is no effusion or pneumothorax. The cardiomediastinal silhouette is without acute process. The osseous structures are without acute process. IMPRESSION: No acute process. Right femoral neck fracture, age indeterminate. Incompletely visualized at the edge of the field of view. Interpreted by: Yannick Alexis MD Signed by: Yannick Alexis MD 11/11/24 Final result Normal [facility] XR ELBOW RIGHT (MIN 3 VIEWS) on 11-11-2024 XR ELBOW RIGHT (MIN 3 VIEWS) EXAMINATION: THREE XRAY VIEWS OF THE RIGHT ELBOW 11/11/2024 6:37 pm COMPARISON: None. HISTORY: ORDERING SYSTEM PROVIDED HISTORY: fall TECHNOLOGIST PROVIDED HISTORY: fall FINDINGS: There is no elbow effusion. There is no acute fracture or dislocation. Alignment is normal. IMPRESSION: No acute abnormality. Interpreted by: Yannick Alexis MD Signed by: Yannick Alexis MD 11/11/24 Final result Normal [facility] XR HUMERUS RIGHT (MIN 2 VIEW S)on 11-11-2024 XR HUMERUS RIGHT (MIN 2 VIEWS) EXAM: 2 VIEWS XRAY OF THE RIGHT HUMERUS AND 3 VIEWS XRAY OF THE RIGHT SHOULDER 11/11/2024 07:12:39 PM COMPARISON: None available. CLINICAL HISTORY: pain, possible dislocation, fall. FINDINGS: BONES AND JOINTS: Right Shoulder: Comminuted fracture of the humeral head. This involves the greater tuberosity which is displaced. The fracture is impacted and involves the surgical neck. Distal fracture fragment is displaced in the anterior direction. Humeral head is impacted on the glenoid but does not appear to be dislocated. No visualized glenoid fracture. Acromioclavicular arthropathy. No widening of the joint space. Right Humerus (distal portion): The distal humerus is intact. No distal fracture or dislocation. SOFT TISSUES: No abnormal calcifications. Visualized lung is unremarkable. IMPRESSION: 1. Comminuted fracture of the right humeral head Interpreted by: Roseann Maldonado MD Signed by: Roseann Maldonado MD 11/11/24 Final result Normal [facility] XR KNEE RIGHT (MIN 4 VIEWS)o n 11-11-2024 XR KNEE RIGHT (MIN 4 VIEWS) EXAMINATION: FOUR XRAY VIEWS OF THE RIGHT KNEE 11/11/2024 6:37 pm COMPARISON: None. HISTORY: ORDERING SYSTEM PROVIDED HISTORY: fall onto knees, include sunrise please TECHNOLOGIST PROVIDED HISTORY: fall onto knees, include sunrise please FINDINGS: No evidence of acute fracture or dislocation. No focal osseous lesion. No evidence of joint effusion. No focal soft tissue abnormality. IMPRESSION: No acute abnormality of the knee. Interpreted by: Yannick Alexis MD Signed by: Yannick Alexis MD 11/11/24 Final result Normal [facility] XR SHOULDER RIGHT (MIN 2 VIE WS)on 11-11-2024 XR SHOULDER RIGHT (MIN 2 VIEWS) EXAM: 2 VIEWS XRAY OF THE RIGHT HUMERUS AND 3 VIEWS XRAY OF THE RIGHT SHOULDER 11/11/2024 07:12:39 PM COMPARISON: None available. CLINICAL HISTORY: pain, possible dislocation, fall. FINDINGS: BONES AND JOINTS: Right Shoulder: Comminuted fracture of the humeral head. This involves the greater tuberosity which is displaced. The fracture is impacted and involves the surgical neck. Distal fracture fragment is displaced in the anterior direction. Humeral head is impacted on the glenoid but does not appear to be dislocated. No visualized glenoid fracture. Acromioclavicular arthropathy. No widening of the joint space. Right Humerus (distal portion): The distal humerus is intact. No distal fracture or dislocation. SOFT TISSUES: No abnormal calcifications. Visualized lung is unremarkable. IMPRESSION: 1. Comminuted fracture of the right humeral head Interpreted by: Roseann Maldonado MD Signed by: Roseann Maldonado MD 11/11/24 Final result Normal [facility] INSULINon 07-18-2022 Insulin 16.2 uIU/mL Normal 2.6-24.9 [facility] Comment on above: Performed By: #### I NSULIN #### [facility] [address] [place] [address] Dr. Suri Pack CBC AUTO DIFFon 07-15-2022 BASO # 0.0 103/ul Normal 0.0-0.1 [facility] Comment on above: Performed By: #### C BC #### [facility] [address] [place] [address] Dr. Suri Pack Basophils/100 WBC (Bld) 0.6 % Normal 0.2-2.0 [facility] Comment on above: Performed By: #### C BC #### [facility] [address] [place] [address] Dr. Suri Pack EO # 0.2 103/ul Normal 0.0-0.7 [facility] Comment on above: Performed By: #### C BC #### [facility] [address] [place] [address] Dr. Suri Pack Eosinophils/100 WBC (Bld) 3.5 % Normal 0.9-7.0 [facility] Comment on above: Performed By: #### C BC #### [facility] [address] [place] [address] Dr. Suri Pack Erythrocyte distribution width (RBC) [Ratio] 17.2 % Critically high 11.0-15.0 [facility] Comment on above: Performed By: #### C BC #### [facility] [address] [place] [address] Dr. Suri Pack Hematocrit (Bld) [Volume fraction] 37.0 % Normal 36.0-48.0 [facility] Comment on above: Performed By: #### C BC #### [facility] [address] [place] [address] Dr. Suri Pack Hemoglobin (Bld) [Mass/Vol] 11.2 g/dL Critically low 12.0-16.0 [facility] Comment on above: Performed By: #### C BC #### [facility] [address] [place] [address] Dr. Suri Pack IG # 0.02 10e3/ul Normal 0.00-0.03 [facility] Comment on above: Performed By: #### C BC #### [facility] [address] [place] [address] Dr. Suri Pack IG % 0.4 % Normal 0.0-0.5 [facility] Comment on above: Performed By: #### C BC #### [facility] [address] [place] [address] Dr. Suri Pack LYMPH # 1.5 103/ul Normal 1.2-3.8 [facility] Comment on above: Performed By: #### C BC #### [facility] [address] [place] [address] Dr. Suri Pack Lymphocytes/100 WBC (Bld) 31.4 % Normal 20.5-60.0 [facility] Comment on above: Performed By: #### C BC #### [facility] [address] [place] [address] Dr. Suri Pack MANUAL DIFF REQ NO Normal [facility] Comment on above: Performed By: #### C BC #### [facility] [address] [place] [address] Dr. Suri Pack MCH (RBC) [Entitic mass] 25.7 pg Critically low 26.7-34.0 [facility] Comment on above: Performed By: #### C BC #### [facility] [address] [place] [address] Dr. Suri Pack MCHC (RBC) [Mass/Vol] 30.3 g/dL Normal 29.9-35.2 [facility] Comment on above: Performed By: #### C BC #### [facility] [address] [place] [address] Dr. Suri Pack MCV (RBC) [Entitic vol] 85.1 fL Normal 81.0-99.0 [facility] Comment on above: Performed By: #### C BC #### [facility] [address] [place] [address] Dr. Suri Pack MONO # 0.4 103/ul Normal 0.3-0.8 [facility] Comment on above: Performed By: #### C BC #### [facility] [address] [place] [address] Dr. Suri Pack Monocytes/100 WBC (Bld) 9.3 % Normal 1.7-12.0 [facility] Comment on above: Performed By: #### C BC #### [facility] [address] [place] [address] Dr. Suri Pack NEUT # 2.5 103/ul Normal 1.4-6.5 [facility] Comment on above: Performed By: #### C BC #### [facility] [address] [place] [address] Dr. Suri Pack Neutrophils/100 WBC (Bld) 54.8 % Normal 43.0-75.0 [facility] Comment on above: Performed By: #### C BC #### [facility] [address] [place] [address] Dr. Suri Pack Platelet mean volume (Bld) [Entitic vol] 10.5 fL Normal 9.5-13.5 [facility] Comment on above: Performed By: #### C BC #### [facility] [address] [place] [address] Dr. Suri Pack PLT 243 103/ul Normal 150-450 [facility] Comment on above: Performed By: #### C BC #### [facility] [address] [place] [address] Dr. Suri Pack RBC 4.35 106/ul Normal 4.20-5.40 [facility] Comment on above: Performed By: #### C BC #### [facility] [address] [place] [address] Dr. Suri Pack WBC 4.6 103/ul Normal 4.0-11.0 [facility] Comment on above: Performed By: #### C BC #### [facility] [address] [place] [address] Dr. Suri Pack FREE THYROXINE INDEX T7on FTI 2.40 Normal 1.30-4.50 [facility] Comment on above: Performed By: #### C MP, T7, LIPID, TSH #### [facility] [address] [address] [address] Suri Pack T3U 32.0 % Normal 30.0-39.0 [facility] Comment on above: Performed By: #### C MP, T7, LIPID, TSH #### [facility] [address] [address] [address] Suri Pack T4 [Mass/Vol] 7.50 ug/dL Normal 4.80-13.90 [facility] Comment on above: Performed By: #### C MP, T7, LIPID, TSH #### [facility] [address] [address] [address] Suri Pack GLYCOHEMOGLOBIN A1Con 2022 ADA RECOMMENDATION SEE BELOW Normal [facility] Comment on above: Result Comment: ADA RECOMMENDED LIMIT 4.0 - 6.0 ADA THERAPEUTIC TARGET < 7.0 ACTION SUGGESTED > 7.0 Performed By: #### A 1C #### [facility] [address] [place] [address] Dr. Suri Pack Glucose [Mass/Vol] 103 mg/dL Normal [facility] Comment on above: Performed By: #### A 1C #### [facility] [address] [address] [address] Suri Pack HbA1c (Bld) [Mass fraction] 5.2 % Normal 4.5-6.2 [facility] Comment on above: Performed By: #### A 1C #### [facility] [address] [place] [address] Dr. Suri Pack IRONon 07-15-2022 Iron [Mass/Vol] 39.0 ug/dL Critically low 50.0-170.0 [facility] Comment on above: Performed By: #### I HERNAN TREVINO #### [facility] [address] [place] [address] Dr. Suri Pack LIPID PROFILEon 07-15-2022 CHOL-HDL RATIO NORM SEE BELOW Normal [facility] Comment on above: Result Comment: 3.3 - 4.4 LOW RISK 4.4 - 7.1 AVERAGE RISK 7.1 - 11.0 MODERATE RISK >11.0 HIGH RISK Performed By: #### C MP, T7, LIPID, TSH #### [facility] [address] [place] [address] Dr. Suri Pack Cholesterol [Mass/Vol] 185 mg/dL Normal <=200 [facility] Comment on above: Performed By: #### C MP, T7, LIPID, TSH #### [facility] [address] [place] [address] Dr. Suri Pack Cholesterol in HDL [Mass/Vol] 85 mg/dL Critically high 40-60 [facility] Comment on above: Performed By: #### C MP, T7, LIPID, TSH #### [facility] [address] [place] [address] Dr. Suri Pack Cholesterol in LDL [Mass/Vol] 88.4 mg/dL Normal The [facility] Comment on above: Performed By: #### C MP, T7, LIPID, TSH #### [facility] [address] [place] [address] Dr. Suri Pack Cholesterol.total/Ch olesterol in HDL [Mass ratio] 2.2 {ratio} Normal [facility] Comment on above: Performed By: #### C MP, T7, LIPID, TSH #### [facility] [address] [place] [address] Dr. Suri Pack HDL NORMAL > or = 60 mg/dl - LO W CARDIOVASCULAR RISK <40 mg/dl - HIGH CARDIOVASCULAR RISK Normal The [facility] Comment on above: Performed By: #### C MP, T7, LIPID, TSH #### [facility] [address] [place] [address] Dr. Suri Pack LDL CALC NORMAL SEE BELOW Normal [facility] Comment on above: Result Comment: <100 mg/dl OPTIMAL 100 - 129 mg/dl NEAR OR ABOVE OPTIMAL 130 - 159 mg/dl BORDERLINE HIGH 160 - 189 mg/dl HIGH >190 mg/dl VERY HIGH Performed By: #### C MP, T7, LIPID, TSH #### [facility] [address] [place] [address] Dr. Suri Pack Triglyceride [Mass/Vol] 58 mg/dL Normal <=150 [facility] Comment on above: Performed By: #### C MP, T7, LIPID, TSH #### [facility] [address] [place] [address] Dr. Suri Pack VLDL CALC 11.6 mg/dL Normal [facility] Comment on above: Performed By: #### C MP, T7, LIPID, TSH #### [facility] [address] [place] [address] Dr. Suri Pack PROF 14(COMP METB)on 023 Albumin [Mass/Vol] 3.4 g/dL Normal 3.4-5.0 [facility] Comment on above: Performed By: #### C MP, T7, LIPID, TSH #### [facility] [address] [place] [address] Dr. Suri Pack Albumin/Globulin [Mass ratio] 0.9 {ratio} Normal [facility] Comment on above: Performed By: #### C MP, T7, LIPID, TSH #### [facility] [address] [place] [address] Dr. Suri Pack ALP [Catalytic activity/Vol] 98 U/L Normal 46-116 [facility] Comment on above: Performed By: #### C MP, T7, LIPID, TSH #### [facility] [address] [place] [address] Dr. Suri Pack ALT [Catalytic activity/Vol] 20 U/L Normal 14-59 [facility] Comment on above: Performed By: #### C MP, T7, LIPID, TSH #### [facility] [address] [place] [address] Dr. Suri Pack Anion gap [Moles/Vol] 16.5 mmol/L Normal [facility] Comment on above: Performed By: #### C MP, T7, LIPID, TSH #### [facility] [address] [place] [address] Dr. Suri Pack AST [Catalytic activity/Vol] 16 U/L Normal 15-37 [facility] Comment on above: Performed By: #### C MP, T7, LIPID, TSH #### [facility] [address] [address] [address] Suri Pack Bilirubin [Mass/Vol] 0.5 mg/dL Normal 0.2-1.0 [facility] Comment on above: Performed By: #### C MP, T7, LIPID, TSH #### [facility] [address] [address] [address] Suri Pack Calcium [Mass/Vol] 9.0 mg/dL Normal 8.5-10.1 [facility] Comment on above: Performed By: #### C MP, T7, LIPID, TSH #### [facility] [address] [address] [address] Suri Pack Chloride [Moles/Vol] 104 mmol/L Normal 98-107 [facility] Comment on above: Performed By: #### C MP, T7, LIPID, TSH #### [facility] [address] [address] [address] Suri Pack CO2 [Moles/Vol] 25.6 mmol/L Normal 21.0-32.0 [facility] Comment on above: Performed By: #### C MP, T7, LIPID, TSH #### [facility] [address] [address] [address] Suri Pack Creatinine [Mass/Vol] 0.78 mg/dL Normal 0.55-1.02 [facility] Comment on above: Performed By: #### C MP, T7, LIPID, TSH #### [facility] [address] [address] [address] Suri Pack EGFR-AF BRAZILIAN >60 Normal >=60 [facility] Comment on above: Performed By: #### C MP, T7, LIPID, TSH #### [facility] [address] [address] [address] Suri Pack EGFR-NON AF BRAZILIAN >60 Normal >=60 [facility] Comment on above: Performed By: #### C MP, T7, LIPID, TSH #### [facility] [address] [address] [address] Suri Pack Globulin (S) [Mass/Vol] 3.9 g/dL Normal [facility] Comment on above: Performed By: #### C MP, T7, LIPID, TSH #### [facility] [address] [address] [address] Suri Pack Glucose [Mass/Vol] 87 mg/dL Normal 74-106 [facility] Comment on above: Performed By: #### C MP, T7, LIPID, TSH #### [facility] [address] [address] [address] Suri Pack Potassium [Moles/Vol] 4.1 mmol/L Normal 3.5-5.1 [facility] Comment on above: Performed By: #### C MP, T7, LIPID, TSH #### [facility] [address] [place] [address] Dr. Suri Pack Protein [Mass/Vol] 7.3 g/dL Normal 6.4-8.2 [facility] Comment on above: Performed By: #### C MP, T7, LIPID, TSH #### [facility] [address] [address] [address] Suri Pack Sodium [Moles/Vol] 142 mmol/L Normal 136-145 [facility] Comment on above: Performed By: #### C MP, T7, LIPID, TSH #### [facility] [address] [address] [address] Suri Pack Urea nitrogen [Mass/Vol] 6.0 mg/dL Critically low 7.0-18.0 [facility] Comment on above: Performed By: #### C MP, T7, LIPID, TSH #### [facility] [address] [place] [address] Dr. Suri Pack Urea nitrogen/Creatinine [Mass ratio] 7.7 mg/mg Normal [facility] Comment on above: Performed By: #### C MP, T7, LIPID, TSH #### [facility] [address] [place] [address] Dr. Suri Pack TSHon 07-15-2022 TSH 3.436 uIU/mL Normal 0.358-3.740 [facility] Comment on above: Performed By: #### C MP, T7, LIPID, TSH #### [facility] [address] [place] [address] Dr. Suri Pack VITAMIN D 25 OHon 07-15-2022 VIT D 25-OH 17.1 ng/mL Normal [facility] Comment on above: Performed By: #### I URIEL VITAD #### [facility] [address] [place] [address] Dr. Suri Pack VIT D RANGES SEE BELOW Normal [facility] Comment on above: Result Comment: <20 ng/mL Vit D deficient 20 - <30 ng/mL Vit D insufficient 30 - 100 ng/mL Vit D sufficient >100 ng/mL Potential Toxicity Performed By: #### I URIEL VITAD #### [facility] [address] [place] [address] Dr. Suri Pack SYMPTOMATIC COVID-19 ANTIGEN on 06-19-2022 EUA Statement SEE BELOW Normal [facility] Comment on above: Result Comment: This test [...] sooner. Performed By: #### C VDAGS #### [facility] [address] [place] [address] Dr. Suri Pack SARS-CoV-2 (COVID-19) RNA LEONEL+probe Ql (Unsp spec) Positive Abnormal NEGATIVE [facility] Comment on above: Performed By: #### C VDAGS #### [facility] [address] [place] [address] Dr. Suri Pack Encounters Encounter Date Encounter Type Care Provider Facility Start: 11-21-2024 End: 11-21-2024 ambulatory Donnie Hickman [facility] Work Phone: Start: 11-21-2024 End: 11-21-2024 Departed Referred Donnie Hickman DO -Lab [facility] Work Phone: Start: 11-11-2024 End: 11-19-2024 Evaluation and management of inpatient ARNOLDO [place] GUNDERSON [facility] Start: 07-17-2022 Encounter for genera l adult medical examination without abnormal findings DR ARNOLDO GUNDERSON . [facility] Start: 07-15-2022 End: 07-16-[address] ARNOLDO GUNDERSON . Facility: Start: 07-15-2022 End: 07-16-2022 Encounter for general adult medical examination without abnormal findings DR ARNOLDO GUNDERSON . Facility: Start: 06-19-2022 End: 06-19-[address] ARNOLDO GUNDERSON . Facility: Payers Date Payer Category Payer Self-pay 2024 Unknown [id number] 2024 Unknown [id number] 1961 Unknown [id number] 1960 Unknown [id number] 1960 Unknown [id number] 1960 Unknown [id number] Unknown [id number] Social History Date Type Detail Facility [facility] Work Phone: Sex Female (finding) [facility] Start: 1960 Sex Assigned At Female F [facility] Evaluation note Note Date & Type Note Facility Evaluation note No assessment information availa ble [facility] Work Phone: Reason for referral (narrative) Note Date & Type Note Facility Reason for referral (narrative) No reason for referral information available [facility] Work Phone: Summary Purpose Family History No Family History Records FoundNo Family History Records FoundNo Family History Records Found Advance Directives No Advanced Directives Records FoundNo Advanced Directives Records FoundNo Advanced Directives Records Found Additional Source Comments INFORMATION SOURCE (unrecogn ized section and content) DATE CREATED AUTHOR 07/28/2022 [facility] DATE CREATED AUTHOR AUTHOR'S ORGANIZ ATION 12/02/2024 [facility] DATE CREATED AUTHOR AUTHOR'S ORGANIZ ATION 12/02/2024 [facility] Care Teams (unrecognized sec tion and content) Team Status: Inactive Member Role Status Dates Donnie Hickman DO Attending Provider Active Start: November 21, 2024 End: November 21, 2024 Goals (unrecognized section and content) Goals may be documented in a n alternate section FOR RECORDS PERTAINING TO PATIENTS WHO ARE [...] BE BASED ON THE PRIMARY CLINICAL RECORDS. [employer] provides no warranty or guarantee of the accuracy or completeness of information in this document.
[2024-12-08 13:50] LABS: Hematocrit 30.9 % (36.0-48.0); Immature Granulocytes Abs Auto 0.01 10^3/uL (0.00-0.03); Immature Granulocytes Pct Auto 0.2 % (0.0-0.5); Lymphocytes Absolute Auto 1.3 10^3/uL (1.2-3.8); Mean Corpuscular HGB Conc 28.5 g/dL (29.9-35.2); Mean Corpuscular Hemoglobin 24.4 pg (26.7-34.0); Mean Corpuscular Volume 85.6 fL (81.0-99.0); Platelet Count 253 10^3/uL (150-450); Red Blood Count 3.61 10^6/uL (4.20-5.40); White Blood Count 5.2 10^3/uL (4.0-11.0)
[2024-12-08 14:26] LABS: Hemoglobin 8.8 g/dL (12.0-16.0)
== END 2024-12-08 13:16 | disposition home or self-care (01) ==
LOC: LAB 13:15
PROVIDERS: PCP Family Medicine; Visit Provider Family Medicine
DX: D64.9 Anemia, unspecified (principal)
CPT/HCPCS: 36415; 85025